=== PATIENT | male | born 1970 | race Caucasian/White ===

== ENCOUNTER 2025-01-31 10:41 | Inpatient (IN) | payer OTHER, SELFPAY ==
[2025-01-31] VITALS (30 sets, daily range): BP systolic 111–169; BP diastolic 60–97; PULSE 73–98; RESP 11–23; TEMP 36.6–36.8; O2SAT 95–100; BMI 24.0
--- NOTE | ~2025-01-31 | XR_ITS ---
XR chest 1V portable Ordering provider: Zeeshan Craig MD History: 54 years Male with . cp . Comparison: July 27, 2013 FINDINGS: MEDIASTINUM: The cardiac silhouette is not enlarged. LUNGS: No infiltrates, effusions or pneumothorax. OTHER: No free air under the diaphragm. IMPRESSION: No acute cardiopulmonary pathology. Reviewed, dictated and finalized at location A.
--- OUTSIDE RECORDS SUMMARY | 2025-01-31 10:43 | XMS_ITS | Referral Summary ---
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 400 strip 3 4 Active simvastatin (ZOCOR) 20 mg tablet Take 1 tablet (20 mg total) by mouth nightly 90 tablet 3 4 025 Active insulin aspart niacinamide (FIASP) 100 unit/mL vial for injectionIndica tions:type 2 diabetes mellitus Infuse insulin via insulin pump. Total daily dose of insulin 60 units. E11.65 60 mL 3 4 Active insulin aspart (NovoLOG) 100 unit/mL vial for injection Infuse insulin via insulin pump. Total daily dose of insulin 60 units. E11.65 Replacement for fiasp 60 mL 4 4 025 Discontin ued(Thera py completed ) Active Problems Problem Noted Date Diagnosed Date Weakness of both lower extremities 05/28/2023 Assessment & Plan (04/28/2024 12:47 PM CDT): Unclear etiology; continues to have weakness, legs tire easily; no evidence of muscle breakdown or disease Will continue to monitor Assessment & Plan (05/28/2023 2:58 PM CDT): Not well controlled, patient reports feeling tired and thighs with climbing stairs; notable low muscle mass; the patient has been regaining weight since initial diagnosis of A[place] Patient can walk on flat ground, 3-4 miles per day; symptoms worsening with age Given diagnoses of A[place]; may also have to consider other autoimmune disorder such as Graves disease, Екатерина's, Assawoman's disease or myasthenic syndrome Will continue to monitor closely, follow-up on testing as needed Medtronic 780G Insulin pump in place 10/17/2022 Assessment & Plan (01/18/2025 12:01 PM RECREATION CENTER DIRECTOR): This is a chronic condition which is not at goal . Download reviewed. From 01/05/2025 to 01/18/2025 Type of insulin pump- Medtronics 780 G with Guardian 4 sensor Pump settings : Basal -0.9 IC -- 9.5 ISF - 36 Active insulin time - 2 hrs. TARGET GLUCOSE -100-110 Avg BG 137 + or - 47 Avg Total daily insulin 46 units Avg daily bolus - 24 units (53%) Avg daily basal - 21 units (47%) Interpretation: In target 81% of the time. 2% hypoglycemia. 17% hyperglycemia. In manual mode 9% of the time, in smartguard 87%. Encouraged continued smartguard. Assessment & Plan (09/16/2024 9:58 AM CDT): This is a chronic condition which is not at goal . Download reviewed. From 09/03/2024 to 09/16/2024 Type of insulin pump- Medtronics 780 G with Guardian 4 sensor Pump settings : Basal -0.9 IC -- 9.5 ISF - 36 Active insulin time - 2 hrs. TARGET GLUCOSE -100-110 Avg BG 153 + or - 50 Avg Total daily insulin 49 units Avg daily bolus - 32 units (67%) Avg daily basal - 16 units (33%) Interpretation: In target 72% of the time. 2% hypoglycemia. 26% hyperglycemia. In manual mode 22% of the time, in smartguard 73%. Encouraged continued smartguard. Assessment & Plan (02/03/2024 9:59 AM CDT): This is a chronic condition which is not at goal . Download reviewed. Type of insulin pump- Medtronics 780 G with Guardian 4 sensor Pump settings : Basal -0.9 IC -- 9.5 ISF - 36 Active insulin time - 2 hrs. TARGET GLUCOSE -100-110 Avg BG 113 + or - 62 Avg Total daily insulin 57 units Avg daily bolus - 34 units (59%) Avg daily basal - 23 units (41%) Interpretation: In target 75% of the time with 1% hypoglycemia. 24% hyperglycemia. In manual mode 18% of the time, in smartguard 77%. Encouraged continued smartguard. Reviewed how to adjust target range to avoid hypoglycemia with activity. Assessment & Plan (10/29/2023 12:12 PM RECREATION CENTER DIRECTOR): This is a chronic condition which is improving, but close to goal as per pump download. Download reviewed. Type of insulin pump- Medtronics 780 G with Guardian 4 sensor Pump settings : Basal -0.9 IC -- 9.5 ISF - 36 Active insulin time - 2 hrs. TARGET GLUCOSE -100-110 Avg BG 171 + or - 98 Avg Total daily insulin 51.5 units Avg daily bolus - 26 units (51%) Avg daily basal - 25 units (49%) Interpretation: In target 72% of the time with 0% hypoglycemia. 28% hyperglycemia. In manual mode 23% of the time, in smartguard 73%. Encouraged continued smartguard. Assessment & Plan (07/30/2023 9:44 AM CDT): This is a chronic condition which is improving, but not at goal as per pump download. Download reviewed. Type of insulin pump- Medtronics 780 G with Guardian 4 sensor Pump settings : Basal -0.9 IC -- 9.5 ISF - 36 Active insulin time changed to 2 hrs. TARGET GLUCOSE -100-110 Avg BG 233 + or - 901 Avg Total daily insulin 47 units Avg daily bolus - 25units (54%) Auto correction 10 units (39%) Avg daily basal - 22 units (46%) Interpretation: In target 55% of the time with 0% hypoglycemia. 45% hyperglycemia. In manual mode 11% of the time, in smartguard 89%. Encouraged continued smartguard. Assessment & Plan (04/30/2023 11:42 AM CDT): This is a chronic condition which is improving, but not at goal as per pump download. Download reviewed. Type of insulin pump- Medtronics 770 G with Guardian 3 sensor Pump settings : Basal -0.7 IC -- 15 ISF - 6 Active insulin time changed to 3 hrs. TARGET GLUCOSE -100-130 Avg BG 163 + or - 61 Avg Total daily insulin 33 units Avg daily bolus -16units (49%) Avg daily basal -17 units (51%) Interpretation: In target 49% of the time with 1% hypoglycemia. 49% hyperglycemia. In manual mode 100% of the time. Assessment & Plan (01/16/2023 2:06 PM RECREATION CENTER DIRECTOR): This is a chronic condition which is improving, but not at goal as per pump download. Download reviewed. Type of insulin pump- Medtronics 770 G with Guardian 3 sensor Pump settings : Basal -0.7 IC -- 15 ISF - 6 Active insulin time changed to 3 hrs. TARGET GLUCOSE -100-130 Avg BG 163 + or - 61 Avg Total daily insulin 32 units Avg daily bolus -13 units (40%) Avg daily basal -19 units (60%) Interpretation improving blood sugar control since starting Medtronic 770 insulin pump. In target 63% of the time without hypoglycemia. In auto mode 79% of the time. Assessment & Plan (10/17/2022 12:55 PM RECREATION CENTER DIRECTOR): This is a chronic condition which is improving, but not at goal as per pump download. Download reviewed. Type of insulin pump- Medtronics 770 G with Guardian 3 sensor Pump settings : Basal -0.7 IC -decreased to 15 ISF decreased to 6 Active insulin time changed to 3 hrs. TARGET GLUCOSE -100-130 Avg BG 193 + or - 65 Avg Total daily insulin 31 units Avg daily bolus -16 units (51%) Avg daily basal -15 units (49%) Interpretation improving blood sugar control since starting Medtronic 770 insulin pump. In target 50% of the time with 1 episode of hypoglycemia since starting pump. Reports he overestimated his carb intake. Switch to auto mode today Mixed diabetic hyperlipidemi a associated with type 1 diabetes mellitus ([facility]) 04/05/2021 Assessment & Plan (09/16/2024 9:56 AM CDT): This is a chronic condition which is not at goal . Goal is LDL less than 70 Continue simvastatin Encouraged to eat healthy, include fresh fruits and vegetables daily and avoid eating fried foods more than once per week. Assessment & Plan (04/28/2024 12:46 PM CDT): Stable, well controlled; lipids generally at goal Continue assist simvastatin 20 mg nightly Assessment & Plan (02/03/2024 9:57 AM CDT): This is a chronic condition which is not at goal of LDL less than 70 Continue simvastatin Encouraged to eat healthy, include fresh fruits and vegetables daily and avoid eating fried foods more than once per week. Encouraged to take medications as prescribed. Assessment & Plan (10/29/2023 12:10 PM RECREATION CENTER DIRECTOR): This is a chronic condition which is not at goal of LDL less than 70 Continue simvastatin Encouraged to eat healthy, include fresh fruits and vegetables daily and avoid eating fried foods more than once per week. Encouraged to take medications as prescribed. Assessment & Plan (07/30/2023 9:41 AM CDT): This is a chronic condition which is not at goal of LDL less than 70 Continue simvastatin Encouraged to eat healthy, include fresh fruits and vegetables daily and avoid eating fried foods more than once per week. Encouraged to take medications as prescribed. Assessment & Plan (05/28/2023 2:58 PM CDT): LDL above target, has been improving diet, but patient reports not liking some healthy foods Cutting down on bad foods without adding back g ood foods Continue simvastatin 40 mg nightly, encourage low-fat high-fiber diet If no improvement, will discuss increasing simvastatin Assessment & Plan (04/30/2023 11:39 AM CDT): This is a chronic condition which is not at goal of LDL less than 70 Continue simvastatin Encouraged to eat healthy, include fresh fruits and vegetables daily and avoid eating fried foods more than once per week. Encouraged to take medications as prescribed. Assessment & Plan (01/16/2023 2:04 PM RECREATION CENTER DIRECTOR): This is a chronic condition which is not at goal. Goal is less than 70. Personally reviewed lipid panel. LDL -114. Continue simvastatin Encouraged to eat healthy, include fresh fruits and vegetables daily and avoid eating fried foods more than once per week. Encouraged to take medications as prescribed. Assessment & Plan (10/24/2022 9:10 AM RECREATION CENTER DIRECTOR): Controlled, last LDL was 114; however patient reports he was not consistent with diet Patient reports he is now improving his diet, taking better care self Will continue to monitor and follow Continue simvastatin 20 mg daily Assessment & Plan (09/05/2022 11:46 AM CDT): This is a chronic condition which is improving, but not at goal. Goal is less than 70. Personally reviewed lipid panel. LDL - 81, improving. currently on simvastatin 10 mg daily, Encouraged to eat healthy, include fresh fruits and vegetables daily and avoid eating fried foods more than once per week. Encouraged to take medications as prescribed. Will reassess at next visit. Assessment & Plan (02/21/2022 5:42 PM CDT): Stable, well controlled; continue simvastatin 10 mg daily Assessment & Plan (08/10/2021 11:16 AM CDT): This is a chronic condition which is improving, but not at goal. Goal is less than 70. Personally reviewed lipid panel. LDL - 81, improving. currently on simvastatin 10 mg daily, Encouraged to eat healthy, include fresh fruits and vegetables daily and avoid eating fried foods more than once per week. Encouraged to take medications as prescribed. Will reassess at next visit. Assessment & Plan (04/05/2021 11:36 AM CDT): This is a chronic condition which is improving, but not at goal. Goal is less than 70. Personally reviewed lipid panel for 10/07. Encouraged to eat healthy, include fresh fruits and vegetables daily and avoid eating fried foods more than once per week. Please take medications as prescribed. Continue on simvastatin 10mg daily. ALEX[place]RIA (latent autoimmune diab etes in adults), managed as type 1 03/01/2021 Overview (04/05/2021): Diagnosed in September/2020, Positive NHAN abs of 23, C-peptide 2.1 Assessment & Plan (09/16/2024 9:56 AM CDT): This is a chronic condition which is elevated, not at goal. This is related to Medtronic sensor issues . Goal is less than 7%. Personally reviewed most recent A1c - Lab Results Component Value Date HGBA1C 8.0 09/16/2024 Personally reviewed POC blood sugar- at goal of 80-180 Lab Results Component Value Date POCGLU 148 09/16/2024 Medication- continue Medtronic 780 G/ Guardian 4 sensor with Fiasp insulin. Basal 0.9, carb ratio -9.5, sensitivity -36, target 100-110, active insulin time -2 hours Monitor blood sugar continuously with guardian cgm. Encouraged annual eye exam. Monofilament foot exam completed. Protective senses intact eGFR- greater than 90 Kidney function-normal Urine microalbumin/creatinine ratio - at goal. Goal is <30 not treated with MURALI/ARB Assessment & Plan (04/28/2024 12:46 PM CDT): Stable, improving; A1c is downtrending; patient using insulin pump with continuous glucose monitor Occasionally has to skip dosing with increased physical activities such as bowling or mowing the lawn Continue to monitor Assessment & Plan (02/03/2024 9:57 AM CDT): This is a chronic condition which is inadequately controlled , not at goal of less than 7%. Personally reviewed most recent A1c - Lab Results Component Value Date HGBA1C 7.5 02/03/2024 Personally reviewed POC blood sugar- at goal 80-180 Lab Results Component Value Date POCGLU 133 02/03/2024 Medication- continue Medtronic 780 G/ Guardian 4 sensor with Fiasp insulin. Basal 0.9, carb ratio -9.5, sensitivity -36, target 100-110, active insulin time -2 hours Monitor blood sugar continuously with sensor. Encouraged annual eye exam. Monofilament foot exam completed. protective senses intact Personally reviewed CMP eGFR-107 Kidney function- normal Urine microalbumin/creatinine ratio - at goal <30 not treated with MURALI/ARB B/P today- at goal of <140/90. Personally reviewed lipid panel. Not at Goal of less than 70. Continue simvastatin Assessment & Plan (10/29/2023 12:10 PM RECREATION CENTER DIRECTOR): This is a chronic condition which is improving and close to goal of less than 7%. Personally reviewed most recent A1c - Lab Results Component Value Date HGBA1C 7.3 10/29/2023 Personally reviewed POC blood sugar- at goal 80-180 Lab Results Component Value Date POCGLU 180 10/29/2023 Medication-continue Medtronic 780 G/ Guardian 4 sensor with Fiasp insulin. Basal 0.9, carb ratio -decreased 9.5, sensitivity - decreased 36, target 100-110, active insulin time -2 hours Monitor blood sugar continuously with guardian 4 sensor. Encouraged annual eye exam. Monofilament foot exam completed. protective senses intact Personally reviewed CMP eGFR- 107 Kidney function- normal Urine microalbumin/creatinine ratio - at goal <30 not treated with MURALI/ARB B/P today- at goal of <140/90. Personally reviewed lipid panel. Not at Goal of less than 70. Continue simvastatin Assessment & Plan (07/30/2023 9:41 AM CDT): This is a chronic condition which is inadequately controlled , not at goal of less than 7%. Personally reviewed most recent A1c - Lab Results Component Value Date HGBA1C 8.1 07/30/2023 Personally reviewed POC blood sugar- not at goal 80-180 Lab Results Component Value Date POCGLU 184 07/30/2023 Medication- Continue Medtronic 780 G/ Guardian 4 sensor with Fiasp insulin. Basal 0.9, carb ratio -decreased 9.5, sensitivity - decreased 36, target 100-110, active insulin time -2 hours Monitor blood sugar continuously with guardian 4 sensor. Encouraged annual eye exam. Monofilament foot exam completed. protective senses intact Personally reviewed CMP eGFR- 107 Kidney function- normal Urine microalbumin/creatinine ratio - goal <30 not treated with MURALI/ARB B/P today- not at goal of <140/90. Discussed monitoring blood sugar 3 times weekly. Discussed proper way of measuring blood pressure. Personally reviewed lipid panel. Not at Goal of less than 70. 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 Personally reviewed most recent A1c - Lab Results Component Value Date HGBA1C 8.1 04/30/2023 Personally reviewed POC blood sugar- not at goal 80-180 Lab Results Component Value Date POCGLU 241 04/30/2023 Medication- Continue Metronic 770 g. With fiasp insulin. Awaiting upgrade to 780G. Monitor blood sugar continuously with Guardian 3/4 Encouraged annual eye exam. last dilated eye exam was 10/09 Monofilament foot exam completed. protective senses intact Personally reviewed CMP eGFR- 111 Kidney function- normal Urine microalbumin/creatinine ratio - at goal <30 not treated with MURALI/ARB B/P today-at goal of <140/90. Personally reviewed lipid panel. Not at Goal of less than 70. Continue simvastatin Assessment & Plan (01/16/2023 2:04 PM RECREATION CENTER DIRECTOR): This is a chronic condition which is greatly improved but not at goal of less than 7%. Personally reviewed A1c today- 7.7% Personally reviewed blood sugar-146 at goal 80-180 Medication- continue Medtronic 770G Encouraged annual eye exam. last dilated eye exam was 10/09. Monofilament foot exam completed, protective senses intact Urine microalbumin/creatinine ratio - <13, at goal <30. Not on murali/arb Personally reviewed labs: CMP, GFR-106 Kidney function- normal B/P today-at goal of less than 140/90. not on MURALI/ARB. Personally reviewed LDL -114, not at goal of less than 70. Continue simvastatin No history of macrovascular disease - [place], [place]. Assessment & Plan (10/24/2022 9:10 AM RECREATION CENTER DIRECTOR): Stable, improving; last A1c was 11.6, however patient now has insulin pump has been using for the past month with improved control blood sugars Patient pressing on low-carbohydrate diet and low refined carbohydrate diet Will continue to monitor Assessment & Plan (10/17/2022 12:51 PM RECREATION CENTER DIRECTOR): This is a chronic condition which is worsening and not at goal of less than 7%. Personally reviewed A1c today- 11.6% Personally reviewed blood sugar-155 at goal 80-180 Medication- continue Medtronic 770G Encouraged annual eye exam. last dilated eye exam was 03/02/21. Reports has an appt 10/09. Monofilament foot exam completed, protective senses intact Urine microalbumin/creatinine ratio - <13, at goal <30. Not on murali/arb Personally reviewed labs: CMP, GFR-106 Kidney function- normal B/P today-at goal of less than 140/90. not on MURALI/ARB. Personally reviewed LDL not at goal of less than 70, improving. Continue simvastatin 10 mg daily, No history of macrovascular disease - [place]. Assessment & Plan (09/05/2022 12:33 PM CDT): This is a chronic condition which is worsening and not at goal. Personally reviewed A1c today- 11.6% close to goal of less than 7% Personally reviewed blood sugar-206, not at goal 80-180 Medication- continue Tresiba 12units daily Encouraged to take tresiba as ordered. Novolog 3 units prior to meals and sliding scale before meals only :- uses Medtronic inpen. 2 units > 200- 3 units > 250. 4 units > 300 and 5 units > 350. Monitor blood sugar continuously with Dexcom 6 Discussed adding insulin pump. Wants to proceed with Medtronic 770G Encouraged annual eye exam. last dilated eye exam was 03/02/21. Reports has an appt 10/09. Monofilament foot exam completed, protective senses intact Urine microalbumin/creatinine ratio - <13, at goal <30. Not on murali/arb Personally reviewed labs: BUN- 17, creatinine- 0.80 GFR-106 Kidney function- normal B/P today-at goal. not on MURALI/ARB. goal blood pressure is <140/90. Personally reviewed LDL - 81, improving. Continue on simvastatin 10 mg daily, not at goal of less than 70 No history of macrovascular disease - [place], [place]. Assessment & Plan (02/21/2022 5:41 PM CDT): Patient reports home blood sugars have been mildly elevated; has difficulty due to work schedule, eating more and fly, reacting with insulin as opposed to being proactive Patient reports he has not been planning a needs, but does try to target 3-4 cars meal Continue Degludec 12 units at bedtime, Humalog 3-4 units with meals Exercises by walking 3-4 miles per day Assessment & Plan (08/10/2021 11:19 AM CDT): This is a chronic condition which is improving, but not at goal. Personally reviewed A1c today- 7.3% close to goal of less than 7% Personally reviewed blood sugar-181, at goal 80-180 Medication- stop Levemir - change to Tresiba 11 units daily and increased to 12 units after 3-4 days to titrate for fasting blood sugar of 150. Novolog 3 units prior to meals and sliding scale before meals only : 2 units > 200- 3 units > 250. 4 units > 300 and 5 units > 350. discontinue Metformin 500 mg bid Monitor blood sugar continuously with Dexcom 6 Discussed adding insulin pump at a later date. Encouraged annual eye exam. last dilated eye exam was 03/02/21 Monofilament foot exam completed, protective senses intact Urine microalbumin/creatinine ratio - 30, currently at goal <30. Not on murali/arb Personally reviewed labs: BUN- 17, creatinine- 0.80 GFR-106 Kidney function- normal B/P today- 90/64 , currently not on MURALI/ARB. At goal blood pressure is <140/90 and as close to 120/80 as possible. Personally reviewed LDL - 81, improving. currently on simvastatin 10 mg daily, not at goal of less than 70 No history of macrovascular disease - [place], [place]. DexCom 6 continuous glucose monitor applied from 07/27/2021 to 08/09/2021 This device was placed for monitor and treatment of blood sugar. Average blood sugar- 188 Variability- 49 % ( goal < 36%) Data Analysis Very High >250 mg/dl- 11% High 181-250 mg/dl 42% Target 70-180 mg/dl 47% Low 54-69 mg/dl 0% Very Low <50 mg/dl 0% Interpretation of data- Lack of basal insulin with weight gain. Changed to Tresiba and basal dose increased. Assessment & Plan (05/31/2021 4:09 PM CDT): Stable, well controlled Patient is blood sugar control is continuing to improve Will continue to monitor Patient followed with Endocrinology for management of blood sugar Today will draw TSH Assessment & Plan (04/05/2021 11:37 AM CDT): This is a chronic condition which is stable, controlled, uncontrolled with hyperglycemia, improving, but not at goal. Personally reviewed A1c today- 8.6% down from 9.0 (12/19/20) Not at goal less than 7% Personally reviewed blood sugar-134, at goal 80-180 Medication- Continue LEVEMIR 10 Units under the skin daily after dinner Use Novolog insulin sliding scale before meals only : 2 units > 200- 3 units > 250. 4 units > 300 and 5 units > 350. Continue Metformin 500 mg bid Monitor blood sugar 4x times a day. Discussed adding insulin pump and sensor. He would like the [employer] 770 G insulin pump system. Referral sent to [facility]Arina Broussard Encouraged annual eye exam. last dilated eye exam was 03/02/21 Monofilament foot exam completed, protective senses intact Urine microalbumin/creatinine ratio - 30, currently at goal <30. Not on murali/arb Personally reviewed labs: (10/07) BUN- 9, creatinine- 0.75 GFR-108 Kidney function- normal B/P today- 118/60 , currently not on MURALI/ARB. At goal blood pressure is <140/90 and as close to 120/80 as possible. Personally reviewed LDL - 109, currently on simvastatin 10 mg daily, not at goal of less than 70 No history of macrovascular disease - [place], [place]. Therapeutic CGM is needed for this person with Type 1 Diabetes for the following reasons: The person has been using a home blood glucose monitor (BGM) and is testing four or more times a day. The person is insulin-treated with three or greater daily injections The person's insulin treatment regimen requires frequent adjustment based on the therapeutic CGM testing results This person has viewed and understands the tutorial video on the continuous glucose monitor Patient has been on 3 or more insulin injections over the last 6 months and has been testing blood sugars 4 times a day for the last 90 days. Patient has been adjusting insulin doses based on blood sugar. Assessment & Plan (03/03/2021 5:03 PM CDT): Diagnosed in September/2020 Positive NHAN abs of 23 C-peptide 2.1 Control : not controlled A1c 9.0% on 12/19/20 Kidney: normal GFR in September/2020 Neuropathy : none Plan: Start Levemir insulin 10 units Qhs. Use Novolog insulin sliding scale before meals only : 2 units > 200- 3 units > 250. 4 units > 300 and 5 units > 350. Continue Metformin 500 mg bid Monitor sugars 4 x per day and send records in one week. Hypoglycemia symptoms and treatment reviewed with patient. Call if having low sugars. Ophthalmology exam on regular basis. Assessment & Plan (03/01/2021 10:05 AM CDT): -based weight loss, poor control of blood sugar with diet and metformin, and positive NHAN markers, concern for LAD -today will start insulin 70-30; discussed with patient how to take insulin, importance of taking with meals, and need for pre-bedtime snack to help reduce risk of hypoglycemia at night -discussed with patient concerns for hypoglycemia -patient has follow-up with endocrine scheduled; will continue to monitor response to medication and determine further steps are required Given patient is starting on insulin, would like benefit from continuous glucose monitoring. Moderate tobacco use disorder 09/28/2020 Overview (09/28/2020): One pack per day, since age 20 Assessment & Plan (04/28/2024 12:46 PM CDT): Stable, mild improvement; smoking 10-20 cigarettes most days; patient not yet ready to quit; encouraged continued evaluation of tobacco use Assessment & Plan (05/28/2023 2:58 PM CDT): Not well controlled, continues to smoke 1/2-1 pack per day; patient has quit before for long periods Patient aware of need to be ready to quit, at this time patient reports he is not ready to quit Will continue to monitor closely and discuss prescription therapies patient is ready for smoking cessation Assessment & Plan (10/24/2022 9:11 AM RECREATION CENTER DIRECTOR): Stable, improving; patient reports he is now down to about 1/2 pack per day, previously quit for about 3 months Encouraged patient to continue to look at smoking cessation; this time patient reports he is not ready to quit smoking Patient is interested in lung cancer screening Assessment & Plan (09/05/2022 12:30 PM CDT): This is a chronic condition which continues. States is only smoking 3-4 cigarettes/day. Encouraged to stop smoking. Assessment & Plan (05/31/2021 4:09 PM CDT): Stable, not well controlled Patient continues to smoke about 1 pack per day Patient reports that this time he is not interested including, has been able to quit the past, though in his stages of change he is not yet ready to make that change Assessment & Plan (12/19/2020 1:47 PM RECREATION CENTER DIRECTOR): Improving, patient has decreased tobacco use, patient is ready to quit Assessment & Plan (11/03/2020 1:42 PM RECREATION CENTER DIRECTOR): Not ready to quit Assessment & Plan (09/28/2020 12:56 PM RECREATION CENTER DIRECTOR): Patient reports he has quit a few times the past, by going cold turkey Most recently restarted during COVID-19 quarantine Patient is a as there medical therapy today, however did counseled patient on importance of smoking cessation for overall long-term health Patient understands is contemplating quitting Resolved Problems Problem Noted Date Diagnosed Date Resolved Date Type 2 diabetes mellitus wit hout complication, without long-term current use of insulin 09/28/2020 03/01/2021 Assessment & Plan (12/19/2020 1:47 PM RECREATION CENTER DIRECTOR): Improving, not well controlled, a1c is 9.0 today -will increase dose of Metformin to 1000 units daily -patienthas been working hard on dietary changes, decreased carbohydrate intake, targeting 50 mg per meal. Assessment & Plan (11/03/2020 2:44 PM RECREATION CENTER DIRECTOR): Improved control based upon patient's home glucose measurements Will continue to monitor, recheck A1c in 6 weeks to see how 3 months of therapy has helped with blood sugar control Encouraged patient continue with low-carbohydrate diet, and increase exercise to include moderate intensity exercise Today will start low-dose statin therapy given patient's cholesterol levels are all within normal limits Encouraged patient to make dietary and lifestyle changes to improve HDL cholesterol Patient reports recent eye exam, dilated eye exam with no concerns for retinopathy Assessment & Plan (09/28/2020 12:54 PM RECREATION CENTER DIRECTOR): Patient's symptoms consistent with newly diagnosed diabetes Weight loss and increased urinary frequency consistent with diabetes; low concern for cancer of prostate, colon or lung at this time; however the patient's symptoms of weight loss and increased urination do not resolve with improved blood sugar control then will plan for further workup A1c checked today in clinic elevated will check lipid panel and CBC and CMP on discharge Today will start on metformin 500 mg XR, will continue to increase dose as necessary in order to improve blood sugar control Follow-up 4-6 weeks and check blood sugar, if still elevated then will begin to add other medication and increased dose of metformin as tolerated BMI 22.0-22.9, adult 09/28/2020 023 Assessment & Plan (04/05/2021 11:34 AM CDT): Weight increased by 4lbs. Has slightly increased carb intake. Encouraged healthy eating. Assessment & Plan (09/28/2020 12:56 PM RECREATION CENTER DIRECTOR): Recent weight loss attributed to newly diagnosed diabetes, however patient overall has good healthy weight Immunizations Immunization Administration Dates Next Due Influenza, Unspecified 04/26/2023(Deferr ed: Patient Refused),07/19/2022(Deferred: Patient Refused),08/18/2021(Deferred: Patient Refused),12/19/2020(Deferred: Patient Refused),11/18/2020(Deferred: Patient Refused),11/03/2020(Deferred: Patient Refused),09/28/2020(Deferred: Patient Refused),11/18/2019(Deferred: Patient Refused),11/18/2019(Deferred: Patient Refused),11/18/2019(Deferred: Patient Refused),11/18/2019(Deferred: Patient Refused) Freever (J&J) SARS-CoV-2 Vaccination 01/24/2021 Social History Tobacco Use Types Packs/Day Years Used Date Smoking Tobacco: Every Day Cigarettes Smokeless Tobacco: Never Tobacco Cessation:Ready to Q uit: Not Asked; Counseling Given: Not Answered Comments:1 ppd Alcohol Use Standard Drinks/Week Comments Not Currently 0 (1 standard drink = 0.6 oz pur e alcohol) AUDIT-C Answer Date Recorded Q1: How often do you have a drink containing alc ohol? Monthly or less 04/26/2023 Average Number of Drinks Not on file 023 Frequency of Binge Drinking Not on file 07/2023 PHQ-2 Answer Date Recorded PHQ-2 Total Score (If total score is 3 or more points, staff should administer the PHQ-9) 0 04/28/2024 Sex and Gender Information Value Date Recorded Sex Assigned at Not on file Legal Sex Male 1:40 AM RECREATION CENTER DIRECTOR Gender Identity Not on file Sexual Orientation Not on file Last Filed Vital Signs Vital Sign Reading Time Taken Comments Blood Pressure 122/64 01/18/2025 11:39 AM RECREATION CENTER DIRECTOR Pulse 95 04/28/2024 8:10 AM CDT Temperature 36.8 C (98.2 F) 04/28/2024 8:10 AM CDT Respiratory Rate 18 04/28/2024 8:10 AM CDT Oxygen Saturation 97% 04/28/2024 8:10 AM CDT Inhaled Oxygen Concentration - - Weight 70.3 kg (155 lb) 01/18/2025 11:39 AM RECREATION CENTER DIRECTOR Height 170.2 cm (5' 7 ) 01/18/2025 11:39 AM RECREATION CENTER DIRECTOR Body Mass Index 24.28 01/18/2025 11:39 AM RECREATION CENTER DIRECTOR Plan of Treatment Not on file Procedures Procedure Name Priority Date/Time Associated Diagnosis Comments POCT HEMOGLOBIN A1C Routine 01/18/2025 1 1:43 AM RECREATION CENTER DIRECTOR [place] (latent autoimmune diabetes in adults), managed as type 1 (HCC) POCT GLUCOSE Routine 01/18/2025 11:40 AM RECREATION CENTER DIRECTOR [place] (latent autoimmune diabetes in adults), managed as type 1 (HCC) HEPATITIS C ANTIBODY Routine 04/30/2024 8:13 AM CDT Encounter for hepatitis C screening test for low risk patient EGFR Routine 04/30/2024 8:13 AM CDT [place] (latent autoimmune diabetes in adults), managed as type 1 (HCC) LIPID PANEL Routine 04/30/2024 8:13 AM CDT [place] (latent autoimmune diabetes in adults), managed as type 1 (HCC) ALBUMIN CREATININE RATIO, URINE Routine 04/30/2024 8:13 AM CDT [place] (latent autoimmune diabetes in adults), managed as type 1 (HCC) THYROID FUNCTION CASCADE Routine 04/30/2024 8:13 AM CDT [place] (latent autoimmune diabetes in adults), managed as type 1 (HCC) PSA SCREEN Routine 04/30/2024 8:13 AM CDT Screening PSA (prostate specific antigen) DIABETIC EYE EXAM Routine 10/14/2023 STOOL DNA COLOGUARD Routine 02/15/2022 7:00 AM CDT Colon cancer screening from Last 3 Months or Most Recently Relevant to Health Maintenance Results * POCT hemoglobin A1c (01/18/2025 11:43 AM RECREATION CENTER DIRECTOR) Hemoglobin A1C, POC 6.9 4.0 - 5.6 % Blood 01/18/2025 11:4 3 AM RECREATION CENTER DIRECTOR us Elena Boland NP POINT OF CARE TEST ORDERABLES F inal Result * POCT glucose (01/18/2025 11:40 AM RECREATION CENTER DIRECTOR) Glucose Blood, POC 120 mg/dL Blood 01/18/2025 11:4 0 AM RECREATION CENTER DIRECTOR us Elena Boland NP POINT OF CARE TEST ORDERABLES F inal Result * eGFR (04/30/2024 8:13 AM CDT) eGFR >90 >=60 mL/min/1. 73 m2 Comment: Interpretive Data Reference Interval Normal >/= 90 mL/min/1.73m2 Mildly decreased* 60 - 89 mL/min/1.73m2 Mildly to moderately decreased 45 - 59 mL/min/1.73m2 Moderately to severely decreased 30 - 44 mL/min/1.73m2 Severely decreased 15 - 29 mL/min/1.73m2 Kidney Failure < 15 mL/min/1.73m2 *Relative to young adult level Estimated glomerular filtration rate is determined by the 2020 CKD-EPI equation recommended by the National Kidney Foundation (A Unifying Approach to GFR Estimation: Recommendations of the NKF-ASK Task Force on Reassessing the Inclusion of Race in Diagnosing Kidney Disease, JASN 2020). The CKD-EPI equation should not be used for patients with unstable renal function and has not been validated in children and those over 70. Current interpretive data was last reviewed 2021. Testing performed by: [facility], [address] [place] [address]., [id number] Blood 04/30/2024 8:13 AM CDT 04/30/2024 12:40 PM CDT Jose Elias Babb MD LAB BLOOD ORDERABLES Pricilla l Result Performing Organization Address City/[facility]/ZIP Co de Phone Number ADELIA AMBRIZ (VENICE) [address] [place] [address] [place] [address] * Thyroid Function [place] (04/30/2024 8:13 AM CDT) TSH 1.23 0.30 - 4.20 mcIUnit/mL Comment:Testing performed by : [facility], [address] [place] [address]., [id number] Blood 04/30/2024 8:13 AM CDT 04/30/2024 12:29 PM CDT Jose Elias Babb MD LAB BLOOD ORDERABLES Pricilla l Result Performing Organization Address City/[facility] Co de Phone Number ADELIA AMBRIZ (VENICE) [address] [place] [address] [place] [address] * PSA screen (04/30/2024 8:13 AM CDT) PSA-Total 1.47 <=3.90 ng/mL Comment: Interpretive Data AGE SEX REFERENCE INTERVAL 0 minutes-150 years Female None 0 minutes-49 years Male None 50-59 years Male 0-3.90 60-69 years Male 0-5.40 70-79 years Male 0-6.20 80-150 years Male 0-6.20 The Max PSA Total assay procedure was used. Results from different manufacturers or methods may not be comparable. Serial testing should be performed using the same method. Current interpretive data last revised 22. Testing performed by: [facility], [address] [place] [address]., [id number] Blood 04/30/2024 8:13 AM CDT 04/30/2024 12:29 PM CDT Jose Elias Babb MD LAB BLOOD ORDERABLES Pricilla l Result Performing Organization Address [facility] de Phone Number ADELIA AMBRIZ (SAMRA) [address] [facility] [place] [address] * Hepatitis C antibody Blood (04/30/2024 8:13 AM CDT) Hep C Ab Nonreactive Nonreactive Comment: Interpretive Data Nonreactive: Antibodies to HCV not detected. Does NOT exclude the possibility of recent exposure to HCV. Equivocal: Equivocal for HCV antibodies. Supplemental molecular testing will be automatically performed to determine infection status in accordance with current CDC screening recommendations. Reactive: Positive for HCV antibodies. This may represent current or past HCV infection. Supplemental molecular testing will be automatically performed to determine current infection status in accordance with current CDC screening recommendations. Interpretive data was last revised on 2020. Testing performed by: [facility], [address] [place] [address]., [id number] Blood 04/30/2024 8:13 AM CDT 04/30/2024 12:29 PM CDT Jose Elias Babb MD LAB MICROBIOLOGY - GENERA L ORDERABLES Final Result Performing Organization Address [facility] de Phone Number ADELIA AMBRIZ (SAMRA) [address] [facility] [place] [address] * Albumin Creatinine Ratio, Urine (04/30/2024 8:13 AM CDT) Albumin Ur <12.0 mg/L Comment: Interpretive Data No reference range established. Current interpretive data was last revised 2019. Testing performed by: [address] [address] Creatinine Ur 213.6 mg/dL ADELIA AMBRIZ (SAMRA) Comment: Interpretive Data No reference range established. Current interpretive data was last revised 2019. Testing performed by: [facility], [address] [place] [address]., [id number] Albumin Creatinine Ratio, Ur <6 1 - 29 mg/g ADELIA AMBRIZ (SAMRA) Comment:Testing performed by : [facility], [address] [place] [address]., [id number] Urine 04/30/2024 8:13 AM CDT 04/30/2024 12:28 PM CDT us Jose Elias Babb MD LAB URINE ORDERABLES Pricilla rosales Result ADELIA AMBRIZ (SAMRA) 1 [facility] [place] [address] * (ABNORMAL) Lipid panel (04/30/2024 8:13 AM CDT) Cholesterol 161 30 - 199 mg/dL Comment: Interpretive Data Ages < or = 19 years Acceptable: <170 mg/dL Borderline high: 170-199 mg/dL High: >or= 200 mg/dL Ages > or = 20 years Desirable: <200 mg/dL Borderline high: 200-239 mg/dL High: >or= 240 mg/dL Literature References: 1. Expert Panel on Integrated Guidelines for Cardiovascular Health and Risk Reduction in Children and Adolescents. Pediatrics 2011;128:S213 2. NCEP Expert Panel. Circulation 2004;110:227 Current Interpretive Data was last revised on 2018. Testing performed by: [facility], [address] [place] [address]., [id number] Triglycerides 57 <=149 mg/dL ADELIA AMBRIZ (SAMRA) Comment: Interpretive Data Ages < or = 9 years Acceptable: <75 mg/dL Borderline high: 75-99 mg/dL High: >or= 100 mg/dL Ages 10 to 20 years Acceptable: <90 mg/dL Borderline high: 90-129 mg/dL High: >or= 130 mg/dL Ages > or = 20 years Desirable: <150 mg/dL Borderline high: 150-199 mg/dL High: 200-499 mg/dL Very high: >or= 499 mg/dL Literature References: 1. Expert Panel on Integrated Guidelines for Cardiovascular Health and Risk Reduction in Children and Adolescents. Pediatrics 2011;128:S213 2. NCEP Expert Panel. Circulation 2004;110:227 Current Interpretive Data was last revised on 2018. Testing performed by: [facility], [address] [place] [address]., [id number] HDL 39(L) >=40 mg/dL CERNER AM [facility] (SAMRA) Comment: Interpretive Data Ages < or = 19 years Acceptable: >45 mg/dL Borderline low: 40-45 mg/dL Low: <40 mg/dL Ages > or = 20 years Desirable: >or= 60 mg/dL Low: <40 mg/dL Literature References: 1. Expert Panel on Integrated Guidelines for Cardiovascular Health and Risk Reduction in Children and Adolescents. Pediatrics 2011;128:S213 2. NCEP Expert Panel. Circulation 2003;110:227 Current Interpretive Data was last revised on 2018. Testing performed by: [facility], [address] [place] [address]., [id number] LDL, calculated 111 <=129 mg/dL [facility] (SAMRA) Comment: Interpretive Data Ages < or = 19 years Acceptable: <110 mg/dL Borderline high: 110-129 mg/dL High: >or= 130 mg/dL Ages > or = 20 years Optimal: <100 mg/dL Near optimal: 100-129 mg/dL Borderline high: 130-159 mg/dL High: >160 mg/dL Literature References: 1. Expert Panel on Integrated Guidelines for Cardiovascular Health and Risk Reduction in Children and Adolescents. Pediatrics 2011;128:S213 2. NCEP Expert Panel. Circulation 2004;110:227 Current Interpretive Data was last revised on 2018. Testing performed by: [facility], [address] [place] [address], [place]., [address] Non-HDL Cholesterol 122 mg/dL [facility] (SAMRA) Comment: Interpretive Data Ages < or = 19 years Acceptable: <120 mg/dL Borderline high: 120-144 mg/dL High: >145 mg/dL Ages > or = 20 years When triglycerides are >200 mg/dL, Non-HDL cholesterol is a secondary target of therapy with treatment goals that are 30 mg/dL greater than the LDL cholesterol target. Literature References: 1. Expert Panel on Integrated Guidelines for Cardiovascular Health and Risk Reduction in Children and Adolescents. Pediatrics 2011;128:S213 2. NCEP Expert Panel. Circulation 2004;110:227 Current Interpretive Data was last revised on 2018. Testing performed by: [facility], [address] [place] [address]., [id number] Chol/HDL ratio 4 SIRI Roy PB (VENICE) Comment:Testing performed by : [facility], [address] [place] [address]., [id number] Blood 04/30/2024 8:13 AM CDT 04/30/2024 12:29 PM CDT Jose Elias Babb MD LAB BLOOD ORDERABLES Pricilla rosales Result ADELIA AMBRIZ (VENICE) 1 [facility] [place] [address] * Diabetic Eye Exam (10/14/2023) Historical Provider HEALTH MAINTENANCE Final Result * Stool DNA - Cologuard (02/15/2022 7:00 AM CDT) Stool DNA - Cologuard Negative Negative [facility] (CLIA #:[id number]) Comment: NEGATIVE TEST RESULT. A negative Cologuard result indicates a low likelihood that a colorectal cancer (CRC) or advanced adenoma (adenomatous polyps with more advanced pre-malignant features) is present. The chance that a person with a negative Cologuard test has a colorectal cancer is less than 1 in 1500 (negative predictive value >99.9%) or has an advanced adenoma is less than 5.3% (negative predictive value 94.7%). These data are based on a prospective cross-sectional study of 10,000 individuals at average risk for colorectal cancer who were screened with both Cologuard and colonoscopy. (Miri Jansen al, N Engl J Med 2014;370(14):0450-0241) The normal value (reference range) for this assay is negative. COLOGUARD RE-SCREENING RECOMMENDATION: Periodic colorectal cancer screening is an important part of preventive healthcare for asymptomatic individuals at average risk for colorectal cancer. Following a negative Cologuard result, the [place] [employer] Society and U.S. Multi-Society Task Force screening guidelines recommend a Cologuard re-screening interval of 3 years. References: [place] [employer] Guideline for Colorectal Cancer Screening: https://www.cancer.org/cancer/uuwpw-hhuwvh-vwnmtm/loirlexzr-sasdtguvw-vkgrmgx/ac s-rec ommendations.html.; Garrett DK, Lashaun THOMAS, Keisha GrayK, Colorectal Cancer Screening: Recommendations for Physicians and Patients from the U.S. Multi-Society Task Force on Colorectal Cancer Screening , Am J Gastroenterology 2017; 112:2537-9042. TEST DESCRIPTION: Composite algorithmic analysis of stool DNA-biomarkers with hemoglobin immunoassay. Quantitative values of individual biomarkers are not reportable and are not associated with individual biomarker result reference ranges. Cologuard is intended for colorectal cancer screening of adults of either sex, 45 years or older, who are at average-risk for colorectal cancer (CRC). Cologuard has been approved for use by the U.S. FDA. The performance of Cologuard was established in a cross sectional study of average-risk adults aged 50-84. Cologuard performance in patients ages 45 to 49 years was estimated by sub-group analysis of near-age groups. Colonoscopies performed for a positive result may find as the most clinically significant lesion: colorectal cancer [4.0%], advanced adenoma (including sessile serrated polyps greater than or equal to 1cm diameter) [20%] or non- advanced adenoma [31%]; or no colorectal neoplasia [45%]. These estimates are derived from a prospective cross-sectional screening study of 10,000 individuals at average risk for colorectal cancer who were screened with both Cologuard and colonoscopy. (Miri Jansen al, N Engl J Med 2014;370(14):1907-5205.) Cologuard may produce a false negative or false positive result (no colorectal cancer or precancerous polyp present at colonoscopy follow up). A negative Cologuard test result does not guarantee the absence of CRC or advanced adenoma (pre-cancer). The current Cologuard screening interval is every 3 years. ([place] [employer] and U.S. Multi-Society Task Force). Cologuard performance data in a 10,000 patient pivotal study using colonoscopy as the reference method can be accessed at the following location: [email or web address]/results. Additional description of the Cologuard test process, warnings and precautions can be found at www.colQQTechnologyrd.com. Stool 02/15/2022 7:00 AM CDT 02/16/2022 9:06 AM CDT Jose Elias Babb MD LAB BODY FLUIDS AND STOOL S ORDERABLES Final Result [facility] (CLIA #:[id number]) [address] [place] [address] from Last 3 Months or Most Recently Relevant to Health Maintenance Insurance [facility] CHOICE PLUS [facility] [place] [address] [place] [address] [facility] CHOICE PLUS [place] [phone] Care Teams Bean Weigher Relationship Specialty Start Date End Date [place] [address] PCP - General Family Medicine 09/28/20
--- OUTSIDE RECORDS SUMMARY | 2025-01-31 10:43 | XMS_ITS | Clinical Summary ---
Author Organization [address] lt Address [address] [place] [address] Care Team Providers Care Master Lay Out Specialist Name Role Phone Jose Elias Babb MD Primary Care Provider [phone] Allergies No known active allergies Medications blood-glucose [...] autoimmune disorder such as Graves disease, Екатерина's, Scooter's disease or myasthenic syndrome Will continue to monitor closely, follow-up on testing as needed Medtronic 780G Insulin pump in place 10/17/2022 Assessment & Plan (01/18/2025 12:01 PM ELECTRICIAN FRONT): This is a chronic condition which is [...] activity. Assessment & Plan (10/29/2023 12:12 PM ELECTRICIAN FRONT): This is a chronic condition which is [...] time. Assessment & Plan (01/16/2023 2:06 PM ELECTRICIAN FRONT): This is a chronic condition which is [...] time. Assessment & Plan (10/17/2022 12:55 PM ELECTRICIAN FRONT): This is a chronic condition which is [...] a associated with type 1 diabetes mellitus ([facility]) 04/05/2021 Assessment & Plan (09/16/2024 9:56 AM [...] prescribed. Assessment & Plan (10/29/2023 12:10 PM ELECTRICIAN FRONT): This is a chronic condition which is [...] prescribed. Assessment & Plan (01/16/2023 2:04 PM ELECTRICIAN FRONT): This is a chronic condition which is not at goal. Goal is less than 70. Personally reviewed lipid panel. LDL -114. Continue simvastatin Encouraged to eat healthy, include fresh fruits and vegetables daily and avoid eating fried foods more than once per week. Encouraged to take medications as prescribed. Assessment & Plan (10/24/2022 9:10 AM ELECTRICIAN FRONT): Controlled, last LDL was 114; however patient [...] simvastatin Assessment & Plan (10/29/2023 12:10 PM ELECTRICIAN FRONT): This is a chronic condition which is [...] Improving control with improved management of sensory dish up person Will continue to support dietary changes and [...] simvastatin Assessment & Plan (01/16/2023 2:04 PM ELECTRICIAN FRONT): This is a chronic condition which is [...] No history of macrovascular disease - CVA, ND. Assessment & Plan (10/24/2022 9:10 AM ELECTRICIAN FRONT): Stable, improving; last A1c was 11.6, however patient now has insulin pump has been using for the past month with improved control blood sugars Patient pressing on low-carbohydrate diet and low refined carbohydrate diet Will continue to monitor Assessment & Plan (10/17/2022 12:51 PM ELECTRICIAN FRONT): This is a chronic condition which is [...] No history of macrovascular disease - CVA, ND. Assessment & Plan (09/05/2022 12:33 PM CDT): [...] sliding scale before meals only :- uses Furious inpen. 2 units > 200- 3 units [...] No history of macrovascular disease - CVA, ND. Assessment & Plan (02/21/2022 5:41 PM CDT): [...] No history of macrovascular disease - CVA, ND. DexCom 6 continuous glucose monitor applied from [...] pump and sensor. He would like the Furious 770 G insulin pump system. Referral sent to [facility]/Arina Broussard Encouraged annual eye exam. last dilated [...] No history of macrovascular disease - CVA, ND. Therapeutic CGM is needed for this person [...] cessation Assessment & Plan (10/24/2022 9:11 AM ELECTRICIAN FRONT): Stable, improving; patient reports he is now [...] change Assessment & Plan (12/19/2020 1:47 PM ELECTRICIAN FRONT): Improving, patient has decreased tobacco use, patient is ready to quit Assessment & Plan (11/03/2020 1:42 PM ELECTRICIAN FRONT): Not ready to quit Assessment & Plan (09/28/2020 12:56 PM ELECTRICIAN FRONT): Patient reports he has quit a few times the past, by going cold turkey Most recently restarted during COV- quarantine Patient is a as there medical therapy today, however did counseled patient on importance of smoking cessation for overall long-term health Patient understands is contemplating quitting Resolved Problems Problem Noted Date Diagnosed Date Resolved Date Type 2 diabetes mellitus wit hout complication, without long-term current use of insulin 09/28/2020 03/01/2021 Assessment & Plan (12/19/2020 1:47 PM ELECTRICIAN FRONT): Improving, not well controlled, a1c is 9.0 today -will increase dose of Metformin to 1000 units daily -patienthas been working hard on dietary changes, decreased carbohydrate intake, targeting 50 mg per meal. Assessment & Plan (11/03/2020 2:44 PM ELECTRICIAN FRONT): Improved control based upon patient's home glucose [...] retinopathy Assessment & Plan (09/28/2020 12:54 PM ELECTRICIAN FRONT): Patient's symptoms consistent with newly diagnosed diabetes [...] eating. 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 (CMS/HCC) (HCC); Medtronic 780G Insulin pump in place from Last 3 Months Immunizations Immunization Administration Dates Next Due Influenza, Unspecified 04/26/2023(Deferr ed: Patient Refused),07/19/2022(Deferred: Patient Refused),08/18/2021(Deferred: Patient Refused),12/19/2020(Deferred: Patient Refused),11/18/2020(Deferred: Patient Refused),11/03/2020(Deferred: Patient Refused),09/28/2020(Deferred: Patient Refused),11/18/2019(Deferred: Patient Refused),11/18/2019(Deferred: Patient Refused),11/18/2019(Deferred: Patient Refused),11/18/2019(Deferred: Patient Refused) 36Kr (J&J) SARS-CoV-2 Vaccination 01/24/2021 Surgical History Surgery Date Site/Laterality Comments ANTERIOR CRUCIATE LIGAMENT REPAIR 11/18/2006 - 7 Medical History Medical History Date Comments Weight loss Type 1 diabetes (HCC) Family History Medical History Relation Name Comments Atrial fibrillation Father Cancer Mother Hypertension Mother Thyroid disease Mother Relation Name Status Comments Father Alive Mother Social History Tobacco Use Types Packs/Day Years [...] on file Legal Sex Male 1:40 AM ELECTRICIAN FRONT Gender Identity Not on file Sexual Orientation Not on file Obstetrics History Last Filed Vital Signs Vital Sign Reading Time Taken Comments Blood Pressure 122/64 01/18/2025 11:39 AM ELECTRICIAN FRONT Pulse 95 04/28/2024 8:10 AM CDT Temperature 36.8 C (98.2 F) 04/28/2024 8:10 AM CDT Respiratory Rate 18 04/28/2024 8:10 AM CDT Oxygen Saturation 97% 04/28/2024 8:10 AM CDT Inhaled Oxygen Concentration - - Weight 70.3 kg (155 lb) 01/18/2025 11:39 AM ELECTRICIAN FRONT Height 170.2 cm (5' 7 ) 01/18/2025 11:39 AM ELECTRICIAN FRONT Body Mass Index 24.28 01/18/2025 11:39 AM ELECTRICIAN FRONT Plan of Treatment Health Maintenance Due Date Last Done Comments DTaP/Tdap/Td Vaccine (1 - Tdap) 1983 Pneumococcal vaccine <65 (1 of 2 - PCV) 1991 Zoster Vaccine (1 of 2) 2022 Covid-19 Vaccine (2 - 2023-2 5 season) 2024 01/24/2021 Influenza Vaccine (#1) 2024 Colon Cancer Screening-DNA Stool 02/15/2025 02/16/20 22 Depression Screening 04/28/2025 04/28/2024, 04/26/2023, 10/24/2022, Additional history exists Regular Well Visit/Exam 18-64 04/28/2025 04/28/2024 Albumin Creatinine Ratio, Urine 04/30/2025 04/30/2024, 04/30/2023, 09/05/2022, Additional history exists Lipid Panel 04/30/2025 04/30/2024, 04/18, 09/05/2022, Additional history exists TSH Level 04/30/2025 04/30/2024, 04/18, 09/05/2022, Additional history exists eGFR 04/30/2025 04/30/2024, 04/18, 09/05/2022, Additional history exists Hemoglobin A1C 07/21/2025 01/18/2025, 08/20, 02/03/2024, Additional history exists Foot Exam 09/16/2025 09/16/2024, 01/16, 10/29/2023, Additional history exists Dilated Eye Exam 10/14/2025 10/14/2023, , 03/02/2021 Prostate Cancer Screening-PSA 04/30/2026 04/30/2024, 04/30/2023 Hepatitis B Screening Completed 04/30/2024 Hepatitis C Screening Completed 04/30/2024 Procedures Procedure Name Priority Date/Time Associated Diagnosis Comments POCT HEMOGLOBIN A1C Routine 01/18/2025 1 1:43 AM ELECTRICIAN FRONT [place] (latent autoimmune diabetes in adults), managed as type 1 (HCC) POCT GLUCOSE Routine 01/18/2025 11:40 AM ELECTRICIAN FRONT [place] (latent autoimmune diabetes in adults), managed [...] * POCT hemoglobin A1c (01/18/2025 11:43 AM ELECTRICIAN FRONT) Hemoglobin A1C, POC 6.9 4.0 - 5.6 % Blood 01/18/2025 11:4 3 AM ELECTRICIAN FRONT us Elena Boland NP POINT OF CARE TEST ORDERABLES F inal Result * POCT glucose (01/18/2025 11:40 AM ELECTRICIAN FRONT) Glucose Blood, POC 120 mg/dL Blood 01/18/2025 11:4 0 AM ELECTRICIAN FRONT us Elena Boland NP POINT OF CARE [...] was last reviewed 2021. Testing performed by: [facility], [address] [place] [address]., [id number] Blood 04/30/2024 8:13 AM CDT 04/30/2024 12:40 PM CDT Jose Elias Babb MD LAB BLOOD ORDERABLES Pricilla l Result ADELIA AMBRIZ ([place]) [address] [place] [address] [place] [address] * Thyroid Function [place] (04/30/2024 8:13 AM CDT) TSH 1.23 0.30 - 4.20 mcIUnit/mL Comment:Testing performed by : [facility], [address] [place] [address]., [id number] Blood 04/30/2024 8:13 AM CDT 04/30/2024 12:29 PM CDT Jose Elias Babb MD LAB BLOOD ORDERABLES Pricilla l Result ADELIA AMBRIZ ([place]) [address] [place] [address] [place] [address] * PSA screen (04/30/2024 8:13 AM CDT) [...] data last revised 22. Testing performed by: [address] [address] Blood 04/30/2024 8:13 AM CDT 04/30/2024 12:29 PM CDT Jose Elias Babb MD LAB BLOOD ORDERABLES Pricilla l Result Performing Organization Address [facility] de Phone Number ADELIA AMBRIZ ([place]) [address] [facility] [place] [address] * Hepatitis C antibody Blood (04/30/2024 8:13 [...] last revised on 2020. Testing performed by: [facility], [address] [place] [address]., [id number] Blood 04/30/2024 8:13 AM CDT 04/30/2024 12:29 PM CDT Jose Elias Babb MD LAB MICROBIOLOGY - GENERA L ORDERABLES Final Result Performing Organization Address [facility] de Phone Number ADELIA AMBRIZ ([place]) 1 [facility] [place] [address] * Albumin Creatinine Ratio, Urine (04/30/2024 8:13 AM CDT) Albumin Ur <12.0 mg/L Comment: Interpretive Data No reference range established. Current interpretive data was last revised 2019. Testing performed by: [address] [address] Creatinine Ur 213.6 mg/dL ADELIA AMBRIZ ([place]) Comment: Interpretive Data No reference range established. Current interpretive data was last revised 2019. Testing performed by: [facility], [address] [place] [address]., [id number] Albumin Creatinine Ratio, Ur <6 1 - 29 mg/g ADELIA AMBRIZ ([place]) Comment:Testing performed by : [facility], [address] [place] [address]., [id number] Urine 04/30/2024 8:13 AM CDT 04/30/2024 12:28 PM CDT us Jose Elias Babb MD LAB URINE ORDERABLES Pricilla rosales Result ADELIA AMBRIZ ([place]) 1 [facility] [place] [address] * (ABNORMAL) Lipid panel (04/30/2024 8:13 AM [...] last revised on 2018. Testing performed by: [facility], [address] [place] [address]., [id number] Triglycerides 57 <=149 mg/dL ADELIA AMBRIZ ([place]) [...] last revised on 2018. Testing performed by: [facility], [address] [place] [address]., [id number] HDL 39(L) >=40 mg/dL CERNER AM H [...] last revised on 2018. Testing performed by: [facility], [address] [place] [address]., [address] LDL, calculated 111 <=129 mg/dL CERNER [facility] [...] last revised on 2018. Testing performed by: [facility], [address] [place] [address] [place]., [address] Non-HDL Cholesterol 122 mg/dL CERNER [facility] ([place]) [...] last revised on 2018. Testing performed by: [facility], [address] [place] [address]., [id number] Chol/HDL ratio 4 SIRI Roy PB ([place]) Comment:Testing performed by : [facility], [address] [place] [address]., [id number] Blood 04/30/2024 8:13 AM CDT 04/30/2024 12:29 PM CDT Jose Elias Babb MD LAB BLOOD ORDERABLES Pricilla l Result ADELIA PB ([place]) 1 [facility] Department of Laboratories [place], [place] [id number] * Diabetic Eye Exam (10/14/2023) Historical Provider HEALTH MAINTENANCE Final Result * Stool DNA - Cologuard (02/15/2022 7:00 AM CDT) Stool DNA - Cologuard Negative Negative Code Blue (CLIA #:[id number]) Comment: NEGATIVE TEST RESULT. A negative Cologuard [...] screened with both Cologuard and colonoscopy. (Miri Pacheco, N Engl J Med 2014;370(14):1904-4113) The normal value (reference range) for this assay is negative. COLOGUARD RE-SCREENING RECOMMENDATION: Periodic colorectal cancer screening is an important part of preventive healthcare for asymptomatic individuals at average risk for colorectal cancer. Following a negative Cologuard result, the [place] [employer] and U.S. Multi-Society Task Force screening guidelines recommend a Cologuard re-screening interval of 3 years. References: [place] [employer] Guideline for Colorectal Cancer Screening: https://www.cancer.org/cancer/pltjz-jborfy-ykfhdj/fgmnhvlpw-ywsvkbphe-aucrzoy/ac s-rec ommendations.html.; Garrett DK, Lashaun THOMAS, Keisha GrayK, Colorectal Cancer Screening: Recommendations for Physicians and Patients from the U.S. Multi-Society Task Force on Colorectal Cancer Screening , Am J Gastroenterology 2017; 112:4752-2307. TEST DESCRIPTION: Composite algorithmic analysis of stool [...] (Miri Jansen al, N Engl J Med 2014;370(14):0209-1030.) Cologuard may produce a false negative or false positive result (no colorectal cancer or precancerous polyp present at colonoscopy follow up). A negative Cologuard test result does not guarantee the absence of CRC or advanced adenoma (pre-cancer). The current Cologuard screening interval is every 3 years. ([place] [employer] and U.S. Multi-Society Task Force). Cologuard performance data in a 10,000 patient pivotal study using colonoscopy as the reference method can be accessed at the following location: www.[employer].imagoo/results. Additional description of the Cologuard test process, warnings and precautions can be found at www.colSpartzrd.com. Stool 02/15/2022 7:00 AM CDT 02/16/2022 9:06 AM CDT us Jose Elias Babb MD LAB BODY FLUIDS AND STOOL S ORDERABLES Final Result Performing Organization Address City/State/[facility] Co de Phone Number [facility] (CLIA #:[id number]) [address] [place] [address] from Last 3 Months or Most Recently Relevant to Health Maintenance Insurance [facility] [place] [address] [facility] [employer] Care Teams Master Lay Out Specialist Relationship Specialty Start Date End Date Jose Elias Babb MD [address] [place] [address] PCP - General Family Medicine 09/28/20
--- NOTE | 2025-01-31 10:45 | ECG_ITS ---
Test Date: 2025-01-31 10:50:06 Measurements Intervals Romulus Rate: 77 P: 66 NM: 154 QRS: 47 QRSD: 100 T: 67 QT: 356 QTc: 404 Interpretive Statements SINUS RHYTHM MARKED ST ELEVATION, CONSIDER INFERIOR INJURY ACUTE [place] No previous ECG available for comparison Electronically Signed On 01-31-2025 14:03:23 CDT by Edison Wood D.O
[2025-01-31] MEDS: ASPIRIN 81 MG CHEWABLE TABLET 324 MG PO (11:01)
[2025-01-31] MEDS: TICAGRELOR 90 MG TABLET 180 MG PO (11:01)
--- NOTE | 2025-01-31 11:01 | ED_ITS ---
HPI - General Adult General Chief complaint: Chest Pain Stated complaint: cp Time Seen by Provider: 01/31/25 10:57 History of Present Illness HPI narrative: 54-year-old male presented to the emergency department for evaluation for right- sided chest pain into the right arm. Patient reports symptoms started approximately 2 hours ago. Patient denies any prior cardiac history. Patient has never had a stress test. Patient denies any prior history of hypertension high cholesterol. Patient does have history of diabetes. Related Data Home Medications ?Medication ?Instructions ?Recorded ?Confirmed ?Last Taken ?Type blood sugar diagnostic (Accu-Chek 01/31/25 01/31/25 Unknown History Guide test strips) insulin aspart (niacinamide) 100 unit subcut .continuos Diabetes 01/31/25 01/31/25 01/31/25 History (U-100) 100 unit/mL subcutaneous solution (Fiasp U-100 Insulin) Allergies Allergy/AdvReac Type Severity Reaction Status Date / Time No Known Allergies Allergy Mild Unverified 07/27/13 10:15 Review of Systems 2 Review of Systems: All systems reviewed & are unremarkable except as noted in HPI and below PMFSH Family History Family History (Updated 01/31/25 @ 13:53 by Keren Bernal RN) Mother Breast cancer Thyroid condition Social History Social History (Updated 01/31/25 @ 11:54 by Edison Wood MD) Smoking packs per day: 1 Smoking cigarettes per day: 20.0 Years smoked: 30 Smoking pack-years: 30.00 Smoking status: Current every day smoker Tobacco type: cigarettes Second hand tobacco smoke exposure: No Alcohol intake: never Substance use: never Substance use type: does not use Do You Feel Safe in your Home?: Yes Lack of Transportation: No Lack of Food: Never True Current Housing: I Have Housing Concerned About Future Housing: No Difficulty Paying Gas/Electric Bills: No Difficulty Paying for Meds: No Currently Unemployed: No Education: Associate Degree Difficulty w/ Childcare or Family Care: No Spiritual care concerns: No Exam 2 Narrative: APPEARANCE: Uncomfortable HEAD: normocephalic, atraumatic. EYES: PERRLA/EOMI, conjunctivae clear. NOSE: Normal no drainage EARS:TMS clear with good light reflex. THROAT: Pharynx clear, no exudate. NECK: Supple. No adenopathy, no masses. RESPIRATORY: Airway patent, respirations nonlabored. Clear to auscultation bilaterally, no rales, rhonchi, wheezing. CARDIOVASCULAR: Regular rate and rhythm without murmurs rubs or gallops. ABDOMINAL: Soft, nontender, nondistended, normal bowel sounds MUSCULOSKELETAL: Moves all extremities. Strength/ROM intact, No edema, No calf tenderness. NEURO: Alert. Cranial nerves II through XII intact. Good gait. Good coordination SKIN: Warm, dry. Normal Color Course Vital Signs Vital signs: Vital Signs Pulse Rate 92 01/31/25 10:45 Temperature 98 F 01/31/25 16:00 Pulse Rate 82 01/31/25 18:00 Respiratory Rate 17 01/31/25 18:00 Blood Pressure 125/83 01/31/25 18:00 Pulse Oximetry 97 01/31/25 18:00 Oxygen Delivery Room Air 01/31/25 10:55 Medical Decision Making [facility] Narrative Medical decision making narrative: 54-year-old male presents emergency department for evaluation for right-sided chest pain. Patient's EKG show evidence of acute STEMI. STEMI was called and case was discussed with Dr Wood with cardiology. Patient was treated with 325 aspirin, 4000 of heparin, atorvastatin and Brilinta. 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 Differential Diagnosis Differential Diagnosis: STEMI, NSTEMI Vital Signs Vital Signs: Vital Signs Pulse Rate 92 01/31/25 10:45 Temperature 98 F 01/31/25 16:00 Pulse Rate 82 01/31/25 18:00 Respiratory Rate 17 01/31/25 18:00 Blood Pressure 125/83 01/31/25 18:00 Pulse Oximetry 97 01/31/25 18:00 Oxygen Delivery Room Air 01/31/25 10:55 Lab Data Lab results reviewed: Yes I reviewed the patient's lab results. 01/31/25 11:01 01/31/25 11:01 Labs: Lab Results 01/31/25 Range/Units 11:01 WBC 10.0 (4.5-10.0) K/mm3 RBC 5.18 (4.6-6.20) M/mm3 Hgb 16.1 (14.0-18.0) g/dL Hct 46.0 (42.0-52.0) % MCV 88.8 (80-100) fl MCH 31.1 (26-34) pg MCHC 35.0 (32-36) g/dl RDW 12.0 (11.5-14.5) % Plt Count 270 (150-375) k/mm3 MPV 9.1 (7.4-10.4) fl Immature Gran % (Auto) 0.4 (0-0.5) % Neut % (Auto) 63.2 (45.5-73.1) % Lymph % (Auto) 22.3 (18.3-44.2) % [place] % (Auto) 7.6 (2.6-8.5) % Eos % (Auto) 5.6 H (0-4.4) % Baso % (Auto) 0.9 (0.2-1.2) % Lymph # (Auto) 2.24 (0.9-3.2) K/mm3 [place] # (Auto) 0.8 H (0.1-0.6) K/mm3 Eos # (Auto) 0.6 H (0-0.3) K/mm3 Baso # (Auto) 0.1 (0.0-0.1) K/mm3 Abs Immat Gran (auto) 0.04 H (0.00-0.031) K/mm3 Absolute Neuts (auto) 6.3 (1.3-6.7) K/mm3 Absolute Nucleated RBC 0.000 (0.0-0.012) K/mm3 Nucleated RBC % 0.0 (0.0-0.2) % PT 13.8 (11.1-14.7) Seconds INR 1.0 APTT 25.8 (22.3-36.8) Seconds Sodium 140 (137-145) mmol/L Potassium 3.9 (3.4-5.0) mmol/L Chloride 102 (98-107) mmol/L Carbon Dioxide 27 (22-30) mmol/L Anion Gap 11 (4-12) mmol/L BUN 18 (9-20) mg/dL Creatinine 0.89 (0.7-1.3) mg/dL Estim Creat Clear Calc 80 ml/min Estimated GFR > 60 (59 - ) Glucose 124 H (65-110) mg/dL Hemoglobin A1c 6.5 H (<5.7) % Calcium 9.3 (8.4-10.2) mg/dL Total Bilirubin 0.8 (0.2-1.3) mg/dL AST 17 (17-59) U/L ALT 15 (6-50) U/L Alkaline Phosphatase 65 (38-126) U/L Troponin I 0.014 (0.000-0.034) ng/mL Total Protein 7.0 (6.3-8.2) g/dL Albumin 4.2 (3.5-5.1) g/dL Triglycerides 70 (<150) mg/dL Cholesterol 140 (0-200) mg/dL LDL Cholesterol Direct 88 mg/dL HDL Direct 37 mg/dL Lipase 43 (23-300) U/L ECG Data EKG #1: EKG Interpretation: normal rate, non-specific ST changes and ST elevation Critical Care Time Critical Care Time Critical Care Time: Yes Total Critical Care Time: 35 Discharge Plan Discharge Clinical Impression: ST elevation GA (STEMI) Patient Disposition: Still a Patient Condition: Critical
[2025-01-31] MEDS: HEPARIN SODIUM 5,000 UNITS/ML VIAL 4000 UNITS IV PUSH (11:02)
[2025-01-31] MEDS: ATORVASTATIN 40 MG TABLET 80 MG PO (11:03)
[2025-01-31 11:08] LABS: Basophils Absolute Auto 0.1 K/mm3 (0.0-0.1); Basophils Percent Auto 0.9 % (0.2-1.2); Eosinophils Absolute Auto 0.6 K/mm3 (0-0.3); Eosinophils Percent Auto 5.6 % (0-4.4); Hemoglobin 16.1 g/dL (14.0-18.0); Immature Granulocyte Absolute 0.04 K/mm3 (0.00-0.031); Immature Granulocyte Percent A 0.4 % (0-0.5); Lymphocytes Absolute Auto 2.24 K/mm3 (0.9-3.2); Lymphocytes Percent Auto 22.3 % (18.3-44.2); Mean Corpuscular Hemoglobin 31.1 pg (26-34); Mean Corpuscular Volume 88.8 fl (80-100); Mean Platelet Volume 9.1 fl (7.4-10.4); Monocytes Absolute Auto 0.8 K/mm3 (0.1-0.6); Monocytes Percent Auto 7.6 % (2.6-8.5); Neutrophils Absolute Auto 6.3 K/mm3 (1.3-6.7); Neutrophils Percent Auto 63.2 % (45.5-73.1); Platelet Count Result 270 k/mm3 (150-375); Red Blood Count 5.18 M/mm3 (4.6-6.20)
[2025-01-31 11:18] LABS: Alanine Aminotransferase 15 U/L (6-50); Albumin Level 4.2 g/dL (3.5-5.1); Alkaline Phosphatase 65 U/L (38-126); Anion Gap 11 mmol/L (4-12); Aspartate Amino Transferase 17 U/L (17-59); Bilirubin,Total 0.8 mg/dL (0.2-1.3); Blood Urea Nitrogen 18 mg/dL (9-20); Calcium 9.3 mg/dL (8.4-10.2); Carbon Dioxide 27 mmol/L (22-30); Chloride 102 mmol/L (98-107); Estimated CRCL calculation 80 ml/min; Estimated Glomerular Filt Rate > 60; Glucose 124 mg/dL (65-110); Lipase 43 U/L (23-300); Potassium 3.9 mmol/L (3.4-5.0); Prothrombin Time 13.8 Seconds (11.1-14.7); Sodium 140 mmol/L (137-145)
[2025-01-31 11:20] LABS: Partial Thromboplastin Time 25.8 Seconds (22.3-36.8)
[2025-01-31 11:29] LABS: Troponin I 0.014 ng/mL (0.000-0.034)
--- NOTE | 2025-01-31 11:48 | PM.IMHP ---
H&P: HPI History of Present Illness Date/Time: 01/31/25 11:48 Chief Complaint: Chest pain that started about 2.5 hours prior to arrival to the hospital Narrative: 54-year-old male smoker with late onset type 1 diabetes mellitus diagnosed in 2019 as per patient; tobacco abuse; no known prior cardiac history. Patient presented to [facility] Emergency Room on 01/31/2025 with complaints of right-sided arm discomfort which was followed by chest discomfort that started about 2.5 hours prior to arrival. He denied shortness of breath, palpitations, dizziness or syncope. Patient denies any known prior cardiac history including clinical VT. No known family history of early CAD. His EKG on my personal interpretation showed sinus rhythm, ST-elevation in the inferior leads with reciprocal ST depression. Cardiac catheterization lab was activated for primary PCI. Patient received aspirin, ticagrelor, atorvastatin, and bolus of unfractionated heparin in the ER. Review of Systems Review of Systems: General: Negative for fever, chills, fatigue Psychological: Negative for anxiety, depression Ophthalmic: negative for loss of vision ENT: Negative for epistaxis, headaches Allergy and immunology: Negative for hives, nasal congestion Hematologic and lymphatic: Negative for overt bleeding problems Endocrine: Negative for hot flashes, palpitations Respiratory: Negative for cough, hemoptysis Cardiovascular: Positive for chest pain and right-sided arm pain Gastrointestinal: Negative for abdominal pain, nausea, vomiting, hematochezia Musculoskeletal: Negative for myalgia, joint pains Neurological: Negative for weakness Dermatological: Negative for rash, skin discoloration PMFSH Social History Social History (Updated 01/31/25 @ 11:54 by Edison Wood MD) Smoking status: Current every day smoker Alcohol intake: current Substance use: never Meds Home Medications and Allergies Allergies Allergy/AdvReac Type Severity Reaction Status Date / Time No Known Allergies Allergy Mild Unverified 07/27/13 10:15 Vital Signs Vital Signs - 24 hr 01/31/25 10:45 01/31/25 10:50 01/31/25 10:55 Temperature 36.7 C Pulse Rate 92 98 Respiratory Rate 16 Blood Pressure 158/86 H Pulse Oximetry 100 Oxygen Delivery Room Air Room Air 01/31/25 11:05 Temperature Pulse Rate 92 Respiratory Rate 16 Blood Pressure 165/84 H Pulse Oximetry 100 Oxygen Delivery Exam Narrative: PHYSICAL EXAMINATION: GENERAL: Alert, oriented, no acute distress MENTAL STATUS: affect appropriate to mood EYES: Extraocular movements intact, no pallor EARS: External ears appear normal, hearing grossly normal NOSE: Normal and patent, no discharge MOUTH: Mucous membranes moist, tongue normal NECK: Supple, no JVD CHEST: Good respiratory effort, clear to auscultation HEART: Normal rate, regular rhythm, normal S1 and S2, S4 gallop ABDOMEN: Soft, nontender NEUROLOGICAL: Alert, oriented, normal speech, no gross motor deficits MUSCULOSKELETAL: No major deformity, no amputation EXTREMITIES: No pedal edema, no clubbing, no cyanosis SKIN: no rash on the exposed area, no cyanosis PSYCHIATRIC: Normal mood, appropriate affect H&P: Results Labs Labs: Short CBC 01/31/25 Range/Units 11:01 WBC 10.0 (4.5-10.0) K/mm3 Hgb 16.1 (14.0-18.0) g/dL Hct 46.0 (42.0-52.0) % Plt Count 270 (150-375) k/mm3 BMP 01/31/25 11:01 Sodium 140 Potassium 3.9 Chloride 102 Carbon Dioxide 27 BUN 18 Creatinine 0.89 Glucose 124 H Calcium 9.3 Cardiac Enzymes 01/31/25 Range/Units 11:01 Troponin I 0.014 (0.000-0.034) ng/mL Liver Function 01/31/25 Range/Units 11:01 Total Bilirubin 0.8 (0.2-1.3) mg/dL AST 17 (17-59) U/L ALT 15 (6-50) U/L Alkaline Phosphatase 65 (38-126) U/L Albumin 4.2 (3.5-5.1) g/dL Assessment and Plan Assessment and plan (1) ST elevation [place] (STEMI): Code(s): I21.3 - ST elevation (STEMI) myocardial infarction of unspecified site Status: Acute Assessment and Plan: 54-year-old male smoker with late onset type 1 diabetes mellitus diagnosed in 2020 as per patient; tobacco abuse; no known prior cardiac history. Patient presented to [facility] Emergency Room with chest discomfort and right arm discomfort that started about 2.5 hours prior to arrival. EKG showed ST elevation in inferior leads with reciprocal ST depression. He received aspirin, ticagrelor, atorvastatin and 4000 units of unfractionated heparin bolus in the ER. Emergent cardiac catheterization showed 100% thrombotic occlusion of mid LCX; about 60-70% focal stenosis mid LAD. Patient underwent primary PCI/IVUS, 4.0 x 22 mm Medtronic kennedy for anterior CELESTE placement with gnosticism of flow. Chest pain resolved post PCI. -admit to ICU -dual antiplatelet therapy with aspirin and ticagrelor for 1 year; high-dose atorvastatin. -functional assessment/PCI of mid LAD in near future. -labs include CMP, CBC, serial troponins for prognostication; HB A1c, lipid panel -echo with Doppler -type 1 diabetes management as per ICU physician (2) Tobacco abuse: Code(s): Z72.0 - Tobacco use Status: Acute Assessment and Plan: Smoking cessation consult was done. Patient is willing to quit tobacco. May use Chantix to facilitate smoking cessation at the time of discharge.
--- NOTE | 2025-01-31 12:57 | WPDCARDPROC ---
Cardiac Cath Procedure Note Date of procedure:: 01/31/25 Performing physician:: Edison Wood MD Procedure Procedure performed:: EMERGENT CARDIAC CATHETERIZATION AND PERCUTANEOUS CORONARY INTERVENTION REPORT DATE OF PROCEDURE: 01/31/2025 INDICATION FOR PROCEDURE: Acute coronary syndrome/inferior ST-elevation myocardial infarction BRIEF CLINICAL HISTORY: 54-year-old male smoker with late onset type 1 diabetes mellitus diagnosed in 2019 as per patient; tobacco abuse; no known prior cardiac history. Patient presented to [facility] Emergency Room on 01/31/2025 with complaints of right-sided arm discomfort which was followed by chest discomfort that started about 2.5 hours prior to arrival. He denied shortness of breath, palpitations, dizziness or syncope. Patient denied any known prior cardiac history including clinical MA. No known family history of early CAD. EKG showed sinus rhythm, ST-elevation in the inferior leads with reciprocal ST depression. Cardiac catheterization lab was activated for primary PCI. Patient received aspirin, ticagrelor, atorvastatin, and bolus of unfractionated heparin in the ER. PROCEDURES PERFORMED: 1. Emergent left heart catheterization- Selective left and right coronary angiogram; left ventriculogram and hemodynamic assessment 2. Primary percutaneous coronary intervention- a) intravascular ultrasound (IVUS) of left circumflex artery; b) direct stenting of mid left circumflex artery using a 4.0 x 22 mm Medtronic kennedy [place] zotarolimus eluting stent with jewish of flow 3. Moderate sedation-CPT code 39912 and beyond MODERATE SEDATION: Midazolam 1 mg; fentanyl 25 mcg. Start time 1200 , Stop time 1244 ; Total [id number] time 44 minutes; Elena Santaigo RN was trained observer for moderate sedation. ACCESS SITE: Right radial artery PROCEDURE NOTE: Patient was emergently brought to catheterization lab and prepped and draped in a usual sterile manner. After local anesthesia with lidocaine, right radial artery access was taken with micropuncture needle followed by insertion of a 6 Singaporean sheath. Selective left and right coronary angiogram was performed using 5 Singaporean JL3.5 guide catheter and JR4 diagnostic catheters respectively. Orthogonal views were taken. After completion of PCI, 5 Singaporean pigtail catheter was advanced in the LV cavity and was flushed with normal saline. LV pressure measurement was performed. After this, left ventriculogram was performed. The catheter was flushed again, and gradient across the aortic valve was measured on the pullback of the catheter. After completion of procedure, radial band was placed with good hemostasis. Patient tolerated procedure well without any immediate procedure related complications. FINDINGS: LEFT MAIN CORONARY: Medium caliber, relatively short vessel, no significant focal stenosis. LEFT ANTERIOR DESCENDING ARTERY: Medium caliber vessel, mildly tortuous, tapers distally and reaches the LV apex. There is about 60-70% focal stenosis in the mid segment distal to the diagonal branch. The major diagonal branch is a small to medium caliber vessel with poorly defined haziness at the ostium. LEFT CIRCUMFLEX ARTERY: The left circumflex artery is a large caliber vessel with 100% thrombotic occlusion in the mid segment before it gives rise to medium caliber OM1 and OM2 branches. There was ARJUN 0 flow prior to intervention which was restored post PCI. RIGHT CORONARY ARTERY: Medium caliber, tortuous vessel. There is mild plaque in the mid-distal segment. The vessel gives rise to medium caliber PDA and PLV branches. LEFT VENTRICULOGRAM: Borderline LV systolic function, ejection fraction about 45-50%; inferior wall is hypokinetic. LVEDP is elevated at 33 mmHg. HEMODYNAMIC ASSESSMENT: Opening pressure 130/66 mmHg, closing pressure 147/80 mmHg, LVEDP 33 mmHg; no significant gradient across aortic valve on the pullback of pigtail catheter. INTERVENTION REPORT: Patient had already received dual antiplatelet therapy with aspirin and ticagrelor in the emergency room. Bivalirudin was used for procedural anticoagulation. There was difficulty in engaging the left main coronary artery ostium with the available XB guide catheter. Next, left main coronary artery was selectively engaged using 6 Singaporean JL 3.5 guide catheter. The totally occluded mid LCX was crossed using 0.014 luge wire. Next, IVUS was performed which showed thrombotic occlusion in the mid LCX with distal reference diameter of 4.4 x 4.4 mm. After this, direct stenting was performed using a 4.0 x 22 mm Medtronic kennedy [place] zotarolimus eluting stent. Postdilation was performed using a 4.0 x 12 mm NC balloon. After this, IVUS was performed which showed reasonable stent apposition. There was no angiographically visible dissection or distal embolization. Left ventriculogram was performed as described above after completion of PCI. Radial band was applied for local hemostasis. Chest pain resolved post PCI. CONCLUSIONS: 1. CAD- a) 100% thrombotic occlusion of mid left circumflex artery (infarct-related vessel); b) about 60-70% focal stenosis mid LCX distal to diagonal branch c) mild diffuse plaque mid-distal RCA 2. Borderline LV systolic function, ejection fraction about 45-50% with inferior wall hypokinesis; LVEDP elevated at 33 mmHg. 3. Primary PCI-IVUS/stenting of totally occluded mid LCX using a 4.0 x 22 mm Medtronic kennedy [place] zotarolimus eluting stent. PLAN/RECOMMENDATIONS: -dual antiplatelet therapy with aspirin and ticagrelor for 1 year; high-dose atorvastatin. -functional assessment/PCI of mid LAD in near future. -labs include CMP, CBC, serial troponins for prognostication; HB A1c, lipid panel -echo with Doppler -type 1 diabetes management as per ICU physician. -complete smoking cessation. Smoking cessation counseling was done and patient is willing to quit tobacco. May use Chantix at discharge to facilitate smoking cessation. This document was completed by using [employer] Fluency Direct speech recognition software, therefore, biochemistry teacher variances may occur.
--- NOTE | 2025-01-31 13:00 | ECG_ITS ---
Test Date: 2025-01-31 13:22:37 Measurements Intervals [place] Rate: 77 P: 67 FL: 160 QRS: 34 QRSD: 97 T: 49 QT: 382 QTc: 435 Interpretive Statements SINUS RHYTHM Electronically Signed On 01-31-2025 14:03:55 CDT by Edison Wood D.O
[2025-01-31 13:11] LABS: Cholesterol 140 mg/dL (0-200); HDL Direct 37 mg/dL; Triglycerides 70 mg/dL (<150)
[2025-01-31 13:14] LABS: Hemoglobin A1C 6.5 % (<5.7)
--- NOTE | 2025-01-31 13:21 | WPDCNINT ---
Assessment and Plan Assessment and plan (1) ST elevation [place] (STEMI): Code(s): I21.3 - ST elevation (STEMI) myocardial infarction of unspecified site Status: Acute Assessment and Plan: 01/31: Patient presented with chest pain radiated the right arm, shortness of breath. EKG showed inferior ST elevation [place] with reciprocal ST depression. Status post PTCA/PCI with CELESTE x1 to mid left circumflex, EF 45-50%, patient also has a 60-70% focal stenosis in the mid segment distal to the diagonal branch in the LAD -cardiology following the patient -continue aspirin, statin, ticagrelor -will check lipid panel -echocardiogram has been ordered (2) Tobacco abuse: Code(s): Z72.0 - Tobacco use Status: Acute Assessment and Plan: Consult on cessation of tobacco use. Patient stated he is going to quit smoking as of today. (3) Diabetes: Code(s): E11.9 - Type 2 diabetes mellitus without complications Status: Acute Assessment and Plan: Patient has a insulin pump which will continue -Accu-Cheks and sliding scale insulin ACHS Plan DVT prophylaxis: Status post cardiac catheterization, SCDs Stress ulcer prophylaxis: Not indicated Nutrition: Diabetic and heart healthy diet Code Status: Full code Critical Care Time Spent: 45 minutes Discussed with patient and his spouse at bedside and updated them with patient's condition and plan of care. I answered their questions Due to a high probability of clinically significant, life threatening deterioration, the patient required my highest level of preparedness to intervene emergently and I personally spent this critical care time directly and personally managing the patient. This critical care time included obtaining a history; examining the patient; pulse oximetry; ordering and review of studies; arranging urgent treatment with development of a management plan; evaluation of patient's response to treatment; frequent reassessment; and discussions with other providers. It was exclusive of separately billable procedures and treating other patients and teaching time. Please see Assessment and Plan section and the rest of the note for further information on patient assessment and treatment This dictation may have been done utilizing a voice recognition system. Attempts have been made to correct errors. However, there may be uncorrected grammatical, spelling, and recognitions errors present. Wolf Hunter Consult Note Consult date: 01/31/25 Reason for consult: Inferior wall ST-elevation myocardial infarction status post PTCA/PCI with CELESTE x1 to mid left circumflex, EF 45-50%, patient also has a 60-70% focal stenosis in the mid segment distal to the diagonal branch in the LAD HPI: Fermin Silva is a 54 year old male diabetes all diagnosed in 2019, has an insulin pump, smoker, 1 pack per day for many years presented to the ER on 01/31/2025 with complains of chest pain radiating the right arm with started about 2.5 hours prior to arrival to the ED. he complained of some shortness of breath, denies any diaphoresis, nausea, vomiting. Patient denies any prior cardiac history, no known family history for early CAD. EKG showed ST-elevation in the inferior leads with reciprocal ST depression. Patient was taken to the cardiac labor contractor status post PTCA/PCI with CELESTE x1 to mid left circumflex, EF 45-50%, patient also has a 60-70% focal stenosis in the mid segment distal to the diagonal branch in the LAD. The right radial approach was performed, patient was transferred to the ICU for further management Patient seen and examined on arrival to the ICU, is awake, alert, oriented x3, pleasant gentleman in no acute distress. Denies any chest pain this time, no other complaints. Hemodynamically stable, TR band in place. States he smokes 1 pack per day for many years, which he has quit since this morning. He denies any alcohol or illicit drug use. Denies any a history of hypertension, thyroid disease, asthma, COPD, CAD. Review of Systems Review of Systems: All systems reviewed & are unremarkable except as noted in HPI and below [facility], LAT[facility] Social History Social History (Updated 01/31/25 @ 11:54 by Edison Wood MD) Smoking status: Current every day smoker Alcohol intake: current Substance use: never Meds Home Medications and Allergies Allergies Allergy/AdvReac Type Severity Reaction Status Date / Time No Known Allergies Allergy Mild Unverified 07/27/13 10:15 Vital Signs Vital Signs - 24 hr 01/31/25 10:45 01/31/25 10:50 01/31/25 10:55 Temperature 98.1 F Pulse Rate 92 98 Respiratory Rate 16 Blood Pressure 158/86 H Pulse Oximetry 100 Oxygen Delivery Room Air Room Air 01/31/25 11:05 01/31/25 11:06 01/31/25 11:11 Temperature Pulse Rate 92 90 87 Respiratory Rate 16 11 L 11 L Blood Pressure 165/84 H 165/84 H 169/92 H Pulse Oximetry 100 100 100 Oxygen Delivery 01/31/25 11:30 01/31/25 11:49 Temperature Pulse Rate 84 87 Respiratory Rate 16 16 Blood Pressure 165/97 H 169/91 H Pulse Oximetry 100 100 Oxygen Delivery Exam Narrative: General: Pleasant gentleman in no acute distress HEENT:? Pupils equal and reactive, sclera is clear, moist oral mucosa Neck:? Supple Respiratory:? Clear to auscultation bilaterally, no wheezing Cardiac:? S1-S2 normal, regular rate and rhythm Abdomen:? Soft, non tender, non distended, normoactive bowel sounds Extremities:? Palpable pedal pulses bilateral lower extremities, no edema. Right radial TR band in place, radial pulse is palpable, no evidence of ecchymosis or hematoma Neuro:? Patient is awake, alert, oriented, nonfocal, follows simple commands in all extremities and answers to questions appropriately Skin:? No skin lesions noted Psych:? Normal mentation and affect Results Labs 01/31/25 11:01 01/31/25 11:01 Labs: Short CBC 01/31/25 Range/Units 11:01 WBC 10.0 (4.5-10.0) K/mm3 Hgb 16.1 (14.0-18.0) g/dL Hct 46.0 (42.0-52.0) % Plt Count 270 (150-375) k/mm3 BMP 01/31/25 11:01 Sodium 140 Potassium 3.9 Chloride 102 Carbon Dioxide 27 BUN 18 Creatinine 0.89 Glucose 124 H Calcium 9.3 Cardiac Enzymes 01/31/25 Range/Units 11:01 Troponin I 0.014 (0.000-0.034) ng/mL Liver Function 01/31/25 Range/Units 11:01 Total Bilirubin 0.8 (0.2-1.3) mg/dL AST 17 (17-59) U/L ALT 15 (6-50) U/L Alkaline Phosphatase 65 (38-126) U/L Albumin 4.2 (3.5-5.1) g/dL Quality VTE Prophylaxis VTE prophylaxis: mechanical ordered Hospitalist MIPS Advance Care Plan I have confirmed that the patient's Advanced Care Plan is present, code status is documented, or surrogate decision maker is listed in patient medical record.: Yes Medication Reconciliation I have utilized all available resources to obtain, update and review the patients current medications (includes all prescriptions, OTC, herbals, cannabis, and nutritional supplements).: Yes
[2025-01-31 13:22] LABS: LDL Cholesterol Direct 88 mg/dL
--- NOTE | 2025-01-31 13:24 | ADMGEN ---
This patient, Fermin Silva, was admitted to Intensive Care Unit-8 at 1311 from the cardiac laboratory monitor. Patient/family oriented to hospital policies and general routines including ID bracelet, bed and alarms, visiting hours, pain management, procedures, bathroom and other care routines, personal items, smoking policy, room service/diet, and visiting hours. Information on how to activate the Rapid Response Team has been discussed. Patient/Family are encouraged to report perceived risks to care and to ask questions if they do not understand what they are told or what they should do.
--- NOTE | 2025-01-31 13:29 | ADMGEN ---
This patient, Fermin Silva, was admitted to Intensive Care Unit-8 at 1308. Patient/family oriented to hospital policies and general routines including ID bracelet, bed and alarms, visiting hours, pain management, procedures, bathroom and other care routines, personal items, smoking policy, room service/diet, and visiting hours. Information on how to activate the Rapid Response Team has been discussed. Patient/Family are encouraged to report perceived risks to care and to ask questions if they do not understand what they are told or what they should do.
[2025-01-31 13:37] LABS: Glucose Point of Care 293 mg/dl (65-105)
[2025-01-31] MEDS: SODIUM CHLORIDE 0.9% IV 1,000 ML 125 ML IV CONT (13:59)
[2025-01-31 15:44] LABS: MRSA (PCR) NOT DETECTED (NOT DETECTE)
[2025-01-31 16:51] LABS: Glucose Point of Care 188 mg/dl (65-105)
[2025-01-31 20:51] LABS: Alanine Aminotransferase 53 U/L (6-50); Albumin Level 3.6 g/dL (3.5-5.1); Alkaline Phosphatase 67 U/L (38-126); Anion Gap 8 mmol/L (4-12); Aspartate Amino Transferase 454 U/L (17-59); Bilirubin,Total 0.7 mg/dL (0.2-1.3); Blood Urea Nitrogen 10 mg/dL (9-20); Calcium 8.5 mg/dL (8.4-10.2); Carbon Dioxide 23 mmol/L (22-30); Chloride 106 mmol/L (98-107); Estimated CRCL calculation 99 ml/min; Estimated Glomerular Filt Rate > 60; Glucose 169 mg/dL (65-110); Magnesium 1.7 mg/dL (1.6-2.3); Phosphorus 3.6 mg/dL (2.5-4.5); Potassium 3.8 mmol/L (3.4-5.0); Sodium 137 mmol/L (137-145)
[2025-01-31] MEDS: AMIODARONE 150 MG/D5W 100 ML 150 MG/100 ML BAG 600 MG IV CONT (21:36)
[2025-01-31] MEDS: TICAGRELOR 90 MG TABLET PO (21:47)
[2025-01-31] MEDS: AMIODARONE 360 MG/D5W 200 ML 360 MG/200 ML BAG 33.33 MG IV CONT (21:47)
[2025-01-31] MEDS: MAGNESIUM SULF 1 GM/D5W 100 ML 1 GM/100 ML BAG IVPB (21:48)
[2025-02-01] VITALS (18 sets, daily range): BP systolic 98–110; BP diastolic 7–72; PULSE 69–84; RESP 16–26; TEMP 36.8–37.9; O2SAT 95–98; BMI 24.0
--- NOTE | 2025-02-01 | ECHO_ITS ---
Patient Info Name: Fermin Silva Age: 54 years : 1970 Gender: Male Ht: 67 in Wt: 153 lbs BSA: 1.82 m2 HR: 81 bpm BP: 103 / 70 mmHg Heart Rhythm: Sinus Rhythm Technical Quality: Fair Exam Date: 02/01/2025 8:57 AM Exam Location: Echo Lab Patient Status: Inpatient Admit Date: 01/31/2025 Staff Ordering Physician: Edison Wood MD Audit Control Clerk: Saira Posadas RDCS Attending Provider: Edison Wood MD Exam Type: CA echo doppler color flow Study Info Indications - [place] Complete two-dimensional, color flow and Doppler transthoracic echocardiogram is performed. Summary 1. Complete two-dimensional, color flow and Doppler transthoracic echocardiogram is performed. 2. The left ventricle is normal in size and systolic function. The basal anterolateral and basal to mid inferolateral brady are mildly hypokinetic. The left ventricular ejection fraction is visually estimated to be 50-60%. 3. There is no significant valvular disease. Left Ventricle The left ventricle is normal in size and systolic function. The basal anterolateral and basal to mid inferolateral brady are mildly hypokinetic. The left ventricular ejection fraction is visually estimated to be 50-60%. Right Ventricle The right ventricle is normal in size and systolic function. Left Atria The left atrium is normal size. Right Atria The right atrium is normal size. Atrial Septum The atrial septum is grossly normal. Aortic Valve The aortic valve is trileaflet and opens well. There is no aortic regurgitation. Pulmonic Valve The pulmonic valve is not well visualized. There is no color Doppler evidence of pulmonic valve regurgitation. Mitral Valve The mitral valve opens well. There is no mitral regurgitation. Tricuspid Valve The tricuspid valve is normal. There is trace tricuspid regurgitation. Pericardium/Pleural Pericardium is normal in appearance with no evidence for significant pericardial effusion. Inferior Vena Cava Normal inferior vena cava with <50% collapse upon inspiration consistent with elevated right atrial pressure, 8 mmHg. Left Ventricular Outflow Tract Name Value Normal LVOT 2D LVOT Diameter 2.0 cm LVOT Doppler LVOT Peak Gradient 4 mmHg LVOT Mean Gradient 2 mmHg LVOT VTI 15 cm LVOT VTI/AV VTI Ratio 0.9 LVOT Stroke Volume 48 ml LVOT CO 3.4 l/min LVOT CI 1.9 l/min/m2 Pulmonic Valve Name Value Normal RVOT Doppler RVOT Peak Gradient 2 mmHg PV Doppler PV Peak Gradient 3 mmHg Mitral Valve Name Value Normal MV Doppler MV Decel [place] 355 cm/s2 MV PHT 58 ms MV Area (PHT) 3.8 cm2 4.0-5.0 MV Diastolic Function MV E Peak Velocity 71 cm/s MV A Peak Velocity 78 cm/s MV E/A 0.9 MV Decel Time 199 ms MV Annular TDI MV E/e' (Septal) 9.8 <=8.0 MV E/e' (Lateral) 16.1 <=8.0 MV E/e' (Average) 12.9 Tricuspid Valve Name Value Normal TV Regurgitation Doppler TR Peak Velocity 190 cm/s TR Peak Gradient 14 mmHg Estimated PAP/RSVP RA Pressure 8 mmHg <=5 PA Systolic Pressure 22 mmHg <36 RV Systolic Pressure 22 mmHg <36 Aorta Name Value Normal Ascending Aorta Ao Root Diameter (MM) 3.2 cm Ao Root Diam Index (MM) 1.8 cm/m2 Aortic Valve Name Value Normal AV Doppler AV Peak Velocity 120 cm/s AV Peak Gradient 6 mmHg AV Mean Gradient 3 mmHg AV VTI 17 cm AV Area (Cont Eq VTI) 2.7 cm2 >=3.0 AV Area (Cont Eq Edilberto) 2.7 cm2 AV Regurgitation 2D LVOT Area 3.2 cm2 Ventricles Name Value Normal LV Dimensions 2D/MM IVS Diastolic Thickness (2D) 1.0 cm 0.6-1.0 LVID Diastole (2D) 4.7 cm 4.2-5.8 LVIW Diastolic Thickness (2D) 1.0 cm 0.6-1.0 LVID Systole (2D) 3.3 cm 2.5-4.0 LVOT Diameter 2.0 cm LV Mass (2D Cubed) 167.73 g 88.00-224.00 LV Mass Index (2D Cubed) 92 g/m2 49-115 Relative Wall Thickness (2D) 0.41 LV Fractional Shortening/Ejection Fraction 2D/MM LV Fractional Shortening (2D) 30 % 25-43 LV EF (2D Teicholz) 58 % 52-72 LV Diastolic Volume (4C MOD) 79 ml LV EF (4C MOD) 55 % LV Diastolic Volume (2C MOD) 69 ml LV EF (2C MOD) 48 % LV Diastolic Volume (BP MOD) 74 ml 62-150 LV Diastolic Volume Index (BP MOD) 41 ml/m2 34-74 LV Systolic Volume (BP MOD) 37 ml 21-61 LV Systolic Volume Index (BP MOD) 20 ml/m2 11-31 LV EF (BP MOD) 50 % 52-72 LV Diastolic Length (4C) 8.4 cm LV Systolic Length (4C) 6.7 cm LV Stroke Volume (4C MOD) 43 ml Atria Name Value Normal LA Dimensions LA Dimension (MM) 2.9 cm 3.0-4.1 LA Volume (4C A-L) 32 ml LA Volume (BP A-L) 35 ml RA Dimensions RA Area (4C) 13.1 cm2 <=18.0 Report Signatures
[2025-02-01 03:59] LABS: Basophils Absolute Auto 0.1 K/mm3 (0.0-0.1); Basophils Percent Auto 0.4 % (0.2-1.2); Eosinophils Absolute Auto 0.1 K/mm3 (0-0.3); Eosinophils Percent Auto 0.6 % (0-4.4); Hematocrit 44.8 % (42.0-52.0); Hemoglobin 15.7 g/dL (14.0-18.0); Immature Granulocyte Absolute 0.06 K/mm3 (0.00-0.031); Immature Granulocyte Percent A 0.4 % (0-0.5); Lymphocytes Percent Auto 9.8 % (18.3-44.2); Mean Corpuscular Hemoglobin 30.8 pg (26-34); Mean Platelet Volume 9.4 fl (7.4-10.4); Monocytes Absolute Auto 1.3 K/mm3 (0.1-0.6); Monocytes Percent Auto 7.9 % (2.6-8.5); Neutrophils Absolute Auto 13.2 K/mm3 (1.3-6.7); Neutrophils Percent Auto 80.9 % (45.5-73.1); Platelet Count Result 251 k/mm3 (150-375); Red Blood Count 5.09 M/mm3 (4.6-6.20); Red Cell Distribution Width 12.1 % (11.5-14.5); White Blood Count 16.3 K/mm3 (4.5-10.0)
[2025-02-01] MEDS: AMIODARONE 360 MG/D5W 200 ML 360 MG/200 ML BAG 16.67 MG IV CONT (04:05)
[2025-02-01 04:10] LABS: Alanine Aminotransferase 58 U/L (6-50); Albumin Level 3.8 g/dL (3.5-5.1); Alkaline Phosphatase 71 U/L (38-126); Anion Gap 10 mmol/L (4-12); Aspartate Amino Transferase 328 U/L (17-59); Bilirubin,Total 0.9 mg/dL (0.2-1.3); Blood Urea Nitrogen 9 mg/dL (9-20); Calcium 8.8 mg/dL (8.4-10.2); Carbon Dioxide 21 mmol/L (22-30); Chloride 104 mmol/L (98-107); Cholesterol 138 mg/dL (0-200); Estimated CRCL calculation 94 ml/min; Estimated Glomerular Filt Rate > 60; Glucose 232 mg/dL (65-110); HDL Direct 36 mg/dL; Magnesium 1.9 mg/dL (1.6-2.3); Phosphorus 3.1 mg/dL (2.5-4.5); Sodium 135 mmol/L (137-145); Triglycerides 75 mg/dL (<150)
[2025-02-01 04:21] LABS: LDL Cholesterol Direct 80 mg/dL
[2025-02-01] MEDS: ASPIRIN 81 MG ENTERIC TABLET PO (08:11)
[2025-02-01] MEDS: ATORVASTATIN 40 MG TABLET 80 MG PO (08:11)
[2025-02-01] MEDS: ACETAMINOPHEN 325 MG TABLET 650 MG PO (08:12)
[2025-02-01] MEDS: TICAGRELOR 90 MG TABLET PO ×2 (08:12→22:11)
[2025-02-01 08:18] LABS: Glucose Point of Care 250 mg/dl (65-105)
--- NOTE | 2025-02-01 09:18 | P.PNINT_ITS ---
Progress Note: A&P Assessment and Plan (1) ST elevation MS (STEMI): Code(s): I21.3 - ST elevation (STEMI) myocardial infarction of unspecified site Status: Acute Assessment and Plan: 01/31: Patient presented with chest pain radiated the right arm, shortness of breath. EKG showed inferior ST elevation MS with reciprocal ST depression. Status post PTCA/PCI with CELESTE x1 to mid left circumflex, EF 45-50%, patient also has a 60-70% focal stenosis in the mid segment distal to the diagonal branch in the LAD -cardiology following the patient -continue aspirin, statin, ticagrelor -lipid panel is within normal limits -echocardiogram has been ordered (2) Tobacco abuse: Code(s): Z72.0 - Tobacco use Status: Acute Assessment and Plan: Consult on cessation of tobacco use. Patient stated he is going to quit smoking as of this admission (3) Diabetes: Code(s): E11.9 - Type 2 diabetes mellitus without complications Status: Acute Assessment and Plan: Patient has a insulin pump which will continue -Accu-Cheks and sliding scale insulin ACHS (4) Arrhythmia: Code(s): I49.9 - Cardiac arrhythmia, unspecified Status: Acute Assessment and Plan: Patient has episodes of ventricular tachycardia, was started on amiodarone per Cardiology overnight with improvement in his rhythm. Likely related to reperfusion injury -continue to monitor, patient may require metoprolol, will discuss with Cardiology Plan DVT prophylaxis: Status post cardiac catheterization, SCDs Stress ulcer prophylaxis: Not indicated Nutrition: Diabetic and heart healthy diet Code Status: Full code Critical Care Time Spent: 31 minutes Patient may transfer out of the ICU if okay with Cardiology Discussed with patient and his spouse at bedside and updated them with patient's condition and plan of care. I answered their questions Due to a high probability of clinically significant, life threatening deterioration, the patient required my highest level of preparedness to intervene emergently and I personally spent this critical care time directly and personally managing the patient. This critical care time included obtaining a history; examining the patient; pulse oximetry; ordering and review of studies; arranging urgent treatment with development of a management plan; evaluation of patient's response to treatment; frequent reassessment; and discussions with other providers. It was exclusive of separately billable procedures and treating other patients and teaching time. Please see Assessment and Plan section and the rest of the note for further information on patient assessment and treatment This dictation may have been done utilizing a voice recognition system. Attempts have been made to correct errors. However, there may be uncorrected grammatical, spelling, and recognitions errors present. Subjective Date/time seen: 02/01/25 09:18 Interval history: Reason for consult: Inferior wall ST-elevation myocardial infarction status post PTCA/PCI with CELESTE x1 to mid left circumflex, EF 45-50%, patient also has a 60- 70% focal stenosis in the mid segment distal to the diagonal branch in the LAD 02/01/2025: Patient seen and examined in the ICU, is awake, alert, oriented x3. Denies any chest pain, shortness a breath, abdominal pain, nausea, vomiting. States he feels much better. Had multiple episodes of ventricular tachycardia last evening and overnight and was started on amiodarone infusion by Cardiology with much improvement. Remains on amiodarone and 0.5 mg/min. Urine output has been adequate, patient is afebrile, hemodynamically stable Review of Systems Review of Systems: All systems reviewed & are unremarkable except as noted in HPI and below Exam Narrative: General: Pleasant gentleman in no acute distress HEENT:? Pupils equal and reactive, sclera is clear, moist oral mucosa Neck:? Supple Respiratory:? Clear to auscultation bilaterally, no wheezing Cardiac:? S1-S2 normal, regular rate and rhythm Abdomen:? Soft, non tender, non distended, normoactive bowel sounds Extremities:? Palpable pedal pulses bilateral lower extremities, no edema. Right radial TR band in place, radial pulse is palpable, evidence of ecchymosis around the thumb and the wrist on the right side, patient is able to move his fingers on the right hand Neuro:? Patient is awake, alert, oriented, nonfocal, follows simple commands in all extremities and answers to questions appropriately Skin:? No skin lesions noted Psych:? Normal mentation and affect Objective Data Vital Signs Vital Signs: Vital Signs - 24 hr 01/31/25 10:45 01/31/25 10:50 01/31/25 10:55 Temperature 98.1 F Pulse Rate 92 98 Respiratory Rate 16 Blood Pressure 158/86 H Pulse Oximetry 100 Oxygen Delivery Room Air Room Air 01/31/25 11:05 01/31/25 11:06 01/31/25 11:11 Temperature Pulse Rate 92 90 87 Respiratory Rate 16 11 L 11 L Blood Pressure 165/84 H 165/84 H 169/92 H Pulse Oximetry 100 100 100 Oxygen Delivery 01/31/25 11:30 01/31/25 11:49 01/31/25 13:10 Temperature Pulse Rate 84 87 79 Respiratory Rate 16 16 15 Blood Pressure 165/97 H 169/91 H 134/85 Pulse Oximetry 100 100 96 Oxygen Delivery 01/31/25 13:12 01/31/25 13:27 01/31/25 13:42 Temperature 98.2 F Pulse Rate 85 82 90 Respiratory Rate 13 15 15 Blood Pressure 134/85 114/81 112/77 Pulse Oximetry 96 96 96 Oxygen Delivery 01/31/25 13:57 01/31/25 14:00 01/31/25 14:12 Temperature Pulse Rate 89 98 97 Respiratory Rate 17 14 Blood Pressure 113/78 152/82 H Pulse Oximetry 96 97 Oxygen Delivery 01/31/25 14:42 01/31/25 15:12 01/31/25 16:00 Temperature 98 F Pulse Rate 75 98 83 Respiratory Rate 15 18 14 Blood Pressure 144/85 H 123/91 H 131/87 Pulse Oximetry 97 95 96 Oxygen Delivery 01/31/25 16:00 01/31/25 17:00 01/31/25 17:05 Temperature Pulse Rate 82 95 80 Respiratory Rate 23 H Blood Pressure 124/83 Pulse Oximetry 97 Oxygen Delivery 01/31/25 18:00 01/31/25 18:00 01/31/25 19:00 Temperature Pulse Rate 82 82 84 Respiratory Rate 17 14 Blood Pressure 125/83 134/83 Pulse Oximetry 97 96 Oxygen Delivery 01/31/25 19:57 01/31/25 19:59 01/31/25 20:00 Temperature 98.3 F Pulse Rate 84 84 73 Respiratory Rate 14 18 Blood Pressure 123/70 Pulse Oximetry 96 97 Oxygen Delivery Room Air 01/31/25 21:00 01/31/25 21:36 01/31/25 21:40 Temperature Pulse Rate 75 74 75 Respiratory Rate 16 Blood Pressure 123/70 111/70 Pulse Oximetry 96 Oxygen Delivery 01/31/25 21:47 01/31/25 22:00 01/31/25 22:00 Temperature Pulse Rate 86 77 77 Respiratory Rate 16 Blood Pressure 113/72 117/72 Pulse Oximetry 95 Oxygen Delivery 01/31/25 23:00 02/01/25 00:00 02/01/25 00:00 Temperature Pulse Rate 77 78 78 Respiratory Rate 20 20 Blood Pressure 117/60 Pulse Oximetry 95 95 Oxygen Delivery Room Air 02/01/25 00:00 02/01/25 01:00 02/01/25 02:00 Temperature Pulse Rate 73 78 77 Respiratory Rate 16 16 Blood Pressure 110/62 98/7 L Pulse Oximetry 95 95 Oxygen Delivery 02/01/25 02:00 02/01/25 04:00 02/01/25 04:00 Temperature Pulse Rate 77 70 Respiratory Rate 16 Blood Pressure 104/55 L Pulse Oximetry 95 Oxygen Delivery Room Air 02/01/25 04:00 02/01/25 04:05 02/01/25 04:05 Temperature 98.2 F Pulse Rate 70 70 70 Respiratory Rate 18 Blood Pressure 103/70 103/70 Pulse Oximetry 96 Oxygen Delivery 02/01/25 06:00 02/01/25 08:00 Temperature 98.6 F Pulse Rate 81 69 Respiratory Rate 18 Blood Pressure 107/72 Pulse Oximetry 96 Oxygen Delivery Intake/Output Intake/Output: Intake & Output 01/29/25 01/30/25 01/31/25 02/01/25 23:59 23:59 23:59 23:59 Intake Total 390 550 Output Total 700 600 Balance -310 -50 Meds/Results Medications: Active Medications Generic Name Dose Route Start Last Admin Trade Name Freq PRN Reason Stop Dose Admin Acetaminophen 650 mg 02/01/25 07:42 02/01/25 08:12 Acetaminophen 325 Mg Tablet PO 650 mg Q6H PRN Administration Mild Pain (1-3) or Fever Aspirin 81 mg 02/01/25 09:00 02/01/25 08:11 Aspirin 81 Mg Enteric Tablet PO 81 mg QAM BRENDA Administration Atorvastatin Calcium 80 mg 02/01/25 09:00 02/01/25 08:11 Atorvastatin 40 Mg Tablet PO 80 mg DAILY BRENDA Administration Dextrose 12.5 gm 01/31/25 13:23 Dextrose 50% 25 Gm/50 Ml Syringe IV PUSH PRN PRN Hypoglycemia Protocol Glucagon 1 mg 01/31/25 13:23 Glucagon For Inj 1 Mg Vial IM PRN PRN Hypoglycemia Protocol Glucose 15 gm 01/31/25 13:23 Glucose Oral Gel 15 Gm Of Glucse In 37.5 Gm Tube PO PRN PRN Hypoglycemia Protocol Dextrose 1,000 mls @ 100 mls/hr 01/31/25 13:23 Dextrose 5% 1,000 Ml IVPB PRN PRN Hypoglycemia Protocol Metoprolol Succinate 12.5 mg 02/01/25 09:00 Metoprolol Succinate Ext Rel 12.5 Mg Tabcr PO QAM BRENDA Perflutren Lipid Microsphere 0 ml 01/31/25 12:56 Perflutren Lipid Microspheres 1.5 Ml Vial Diluted To 10 Ml Total Volume IV PUSH 02/03/25 12:57 ONCE PRN adequate visualization Protocol Ticagrelor 90 mg 01/31/25 21:00 02/01/25 08:12 Ticagrelor 90 Mg Tablet PO 90 mg Q12HR BRENDA Administration Radiology Results: ITS Impressions Chest X-Ray 01/31/25 11:31 IMPRESSION: No acute cardiopulmonary pathology. Labs Labs: Laboratory Results - last 24 hr 01/31/25 01/31/25 01/31/25 11:01 13:29 14:24 WBC 10.0 RBC 5.18 Hgb 16.1 Hct 46.0 MCV 88.8 MCH 31.1 MCHC 35.0 RDW 12.0 Plt Count 270 MPV 9.1 Immature Gran % (Auto) 0.4 Neut % (Auto) 63.2 Lymph % (Auto) 22.3 [place] % (Auto) 7.6 Eos % (Auto) 5.6 H Baso % (Auto) 0.9 Lymph # (Auto) 2.24 [place] # (Auto) 0.8 H Eos # (Auto) 0.6 H Baso # (Auto) 0.1 Abs Immat Gran (auto) 0.04 H Absolute Neuts (auto) 6.3 Absolute Nucleated RBC 0.000 Nucleated RBC % 0.0 PT 13.8 INR 1.0 APTT 25.8 Sodium 140 Potassium 3.9 Chloride 102 Carbon Dioxide 27 Anion Gap 11 BUN 18 Creatinine 0.89 Estim Creat Clear Calc 80 Estimated GFR > 60 Glucose 124 H POC Capillary Glucose 293 H Hemoglobin A1c 6.5 H Calcium 9.3 Phosphorus Magnesium Total Bilirubin 0.8 AST 17 ALT 15 Alkaline Phosphatase 65 Troponin I 0.014 Total Protein 7.0 Albumin 4.2 Triglycerides 70 Cholesterol 140 LDL Cholesterol Direct 88 HDL Direct 37 Lipase 43 Nasal MRSA (PCR) Not detected 01/31/25 01/31/25 02/01/25 16:48 20:20 03:37 WBC 16.3 H RBC 5.09 Hgb 15.7 Hct 44.8 MCV 88.0 MCH 30.8 MCHC 35.0 RDW 12.1 Plt Count 251 MPV 9.4 Immature Gran % (Auto) 0.4 Neut % (Auto) 80.9 H Lymph % (Auto) 9.8 L [place] % (Auto) 7.9 Eos % (Auto) 0.6 Baso % (Auto) 0.4 Lymph # (Auto) 1.60 [place] # (Auto) 1.3 H Eos # (Auto) 0.1 Baso # (Auto) 0.1 Abs Immat Gran (auto) 0.06 H Absolute Neuts (auto) 13.2 H Absolute Nucleated RBC 0.000 Nucleated RBC % 0.0 PT INR APTT Sodium 137 135 L Potassium 3.8 4.0 Chloride 106 104 Carbon Dioxide 23 21 L Anion Gap 8 10 BUN 10 D 9 Creatinine 0.70 0.74 Estim Creat Clear Calc 99 94 Estimated GFR > 60 > 60 Glucose 169 H 232 H POC Capillary Glucose 188 H Hemoglobin A1c Calcium 8.5 8.8 Phosphorus 3.6 3.1 Magnesium 1.7 1.9 Total Bilirubin 0.7 0.9 AST 454 H 328 H ALT 53 H 58 H Alkaline Phosphatase 67 71 Troponin I Total Protein 6.0 L 7.0 Albumin 3.6 3.8 Triglycerides 75 Cholesterol 138 LDL Cholesterol Direct 80 HDL Direct 36 Lipase Nasal MRSA (PCR) 02/01/25 08:06 WBC RBC Hgb Hct MCV MCH MCHC RDW Plt Count MPV Immature Gran % (Auto) Neut % (Auto) Lymph % (Auto) [place] % (Auto) Eos % (Auto) Baso % (Auto) Lymph # (Auto) [place] # (Auto) Eos # (Auto) Baso # (Auto) Abs Immat Gran (auto) Absolute Neuts (auto) Absolute Nucleated RBC Nucleated RBC % PT INR APTT Sodium Potassium Chloride Carbon Dioxide Anion Gap BUN Creatinine Estim Creat Clear Calc Estimated GFR Glucose POC Capillary Glucose 250 H Hemoglobin A1c Calcium Phosphorus Magnesium Total Bilirubin AST ALT Alkaline Phosphatase Troponin I Total Protein Albumin Triglycerides Cholesterol LDL Cholesterol Direct HDL Direct Lipase Nasal MRSA (PCR) Quality VTE Prophylaxis VTE prophylaxis: mechanical ordered
[2025-02-01] MEDS: METOPROLOL SUCCINATE EXT REL 12.5 MG TABCR PO (11:00)
[2025-02-01 11:13] LABS: Glucose Point of Care 209 mg/dl (65-105)
--- NOTE | 2025-02-01 12:43 | P.PNCA_ITS ---
Progress Note: A&P Assessment and Plan (1) ST elevation [place] (STEMI): Code(s): I21.3 - ST elevation (STEMI) myocardial infarction of unspecified site Status: Acute Plan 54-year-old man with type 1 diabetes presented with inferior [address]-elevation TX who is now status post PCI to the left circumflex ST-elevation TX -status post PCI to left circumflex -obtain transthoracic echocardiogram -continue aspirin 80 p.o. daily and ticagrelor 90 mg q.12 Nonsustained ventricular tachycardia -longest run was 13 seconds overnight for which amiodarone was started -can stop amiodarone and start metoprolol succinate 12.5 mg p.o. daily up ti trate as tolerated Coronary artery disease -residual LAD stenosis to be managed outpatient -continue atorvastatin 80 mg every evening Hyperlipidemia -continue atorvastatin 80 mg every evening Can be moved to IMU where he is awaiting echocardiogram as well as observe patient overnight of his rhythm on telemetry Subjective Date/time seen: 02/01/25 12:43 Interval history: Denies any chest pain or shortness of breath. No orthopnea. Review of Systems Cardiovascular: Cardiovascular: Reports as per HPI Respiratory: Respiratory: Reports as per HPI Exam Const: General: comfortable HENMT: Mouth: Yes moist mucous membranes Eyes: EOM: EOMs intact bilaterally Neck: Neck: no JVD Resp: Effort & Inspection: normal respiratory effort Auscultation: clear to auscultation bilaterally Cardio: Rate: regular rate Rhythm: regular rhythm GI: GI Palp: Yes Soft to palpation Neuro: Speech: normal speech Extrem: General: no pedal edema Other: Right radial post intact. No swelling of right arm or tenderness Objective Data Vital Signs Vital Signs: Vital Signs - 24 hr 01/31/25 13:10 01/31/25 13:12 01/31/25 13:27 Temperature 36.8 C Pulse Rate 79 85 82 Respiratory Rate 15 13 15 Blood Pressure 134/85 134/85 114/81 Pulse Oximetry 96 96 96 Oxygen Delivery 01/31/25 13:42 01/31/25 13:57 01/31/25 14:00 Temperature Pulse Rate 90 89 98 Respiratory Rate 15 17 Blood Pressure 112/77 113/78 Pulse Oximetry 96 96 Oxygen Delivery 01/31/25 14:12 01/31/25 14:42 01/31/25 15:12 Temperature Pulse Rate 97 75 98 Respiratory Rate 14 15 18 Blood Pressure 152/82 H 144/85 H 123/91 H Pulse Oximetry 97 97 95 Oxygen Delivery 01/31/25 16:00 01/31/25 16:00 01/31/25 17:00 Temperature 36.6 C Pulse Rate 83 82 95 Respiratory Rate 14 23 H Blood Pressure 131/87 124/83 Pulse Oximetry 96 97 Oxygen Delivery 01/31/25 17:05 01/31/25 18:00 01/31/25 18:00 Temperature Pulse Rate 80 82 82 Respiratory Rate 17 Blood Pressure 125/83 Pulse Oximetry 97 Oxygen Delivery 01/31/25 19:00 01/31/25 19:57 01/31/25 19:59 Temperature Pulse Rate 84 84 84 Respiratory Rate 14 14 Blood Pressure 134/83 Pulse Oximetry 96 96 Oxygen Delivery Room Air 01/31/25 20:00 01/31/25 21:00 01/31/25 21:36 Temperature 36.8 C Pulse Rate 73 75 74 Respiratory Rate 18 16 Blood Pressure 123/70 123/70 111/70 Pulse Oximetry 97 96 Oxygen Delivery 01/31/25 21:40 01/31/25 21:47 01/31/25 22:00 Temperature Pulse Rate 75 86 77 Respiratory Rate Blood Pressure 113/72 Pulse Oximetry Oxygen Delivery 01/31/25 22:00 01/31/25 23:00 02/01/25 00:00 Temperature Pulse Rate 77 77 78 Respiratory Rate 16 20 20 Blood Pressure 117/72 117/60 Pulse Oximetry 95 95 95 Oxygen Delivery Room Air 02/01/25 00:00 02/01/25 00:00 02/01/25 01:00 Temperature Pulse Rate 78 73 78 Respiratory Rate 16 16 Blood Pressure 110/62 98/7 L Pulse Oximetry 95 95 Oxygen Delivery 02/01/25 02:00 02/01/25 02:00 02/01/25 04:00 Temperature Pulse Rate 77 77 Respiratory Rate 16 Blood Pressure 104/55 L Pulse Oximetry 95 Oxygen Delivery Room Air 02/01/25 04:00 02/01/25 04:00 02/01/25 04:05 Temperature 36.8 C Pulse Rate 70 70 70 Respiratory Rate 18 Blood Pressure 103/70 103/70 Pulse Oximetry 96 Oxygen Delivery 02/01/25 04:05 02/01/25 06:00 02/01/25 08:00 Temperature 37.0 C Pulse Rate 70 81 69 Respiratory Rate 18 Blood Pressure 107/72 Pulse Oximetry 96 Oxygen Delivery 02/01/25 08:00 02/01/25 08:00 02/01/25 08:00 Temperature Pulse Rate 76 69 Respiratory Rate Blood Pressure 107/72 Pulse Oximetry 96 Oxygen Delivery Room Air 02/01/25 10:00 02/01/25 10:00 02/01/25 11:00 Temperature Pulse Rate 73 73 72 Respiratory Rate Blood Pressure 108/70 Pulse Oximetry Oxygen Delivery 02/01/25 12:00 02/01/25 12:00 02/01/25 12:00 Temperature Pulse Rate 77 71 Respiratory Rate Blood Pressure 109/72 Pulse Oximetry 96 Oxygen Delivery Room Air 02/01/25 12:00 Temperature 36.9 C Pulse Rate 77 Respiratory Rate 20 Blood Pressure 109/72 Pulse Oximetry 96 Oxygen Delivery Intake/Output Intake/Output: Intake & Output 01/29/25 01/30/25 01/31/25 02/01/25 23:59 23:59 23:59 23:59 Intake Total 390 1031.9 Output Total 700 600 Balance -310 431.9 Meds/Results Medications: Active Medications Generic Name Dose Route Start Last Admin Trade Name Freq PRN Reason Stop Dose Admin Acetaminophen 650 mg 02/01/25 07:42 02/01/25 08:12 Acetaminophen 325 Mg Tablet PO 650 mg Q6H PRN Administration Mild Pain (1-3) or Fever Aspirin 81 mg 02/01/25 09:00 02/01/25 08:11 Aspirin 81 Mg Enteric Tablet PO 81 mg QAM BRENDA Administration Atorvastatin Calcium 80 mg 02/01/25 09:00 02/01/25 08:11 Atorvastatin 40 Mg Tablet PO 80 mg DAILY BRENDA Administration Dextrose 12.5 gm 01/31/25 13:23 Dextrose 50% 25 Gm/50 Ml Syringe IV PUSH PRN PRN Hypoglycemia Protocol Glucagon 1 mg 01/31/25 13:23 Glucagon For Inj 1 Mg Vial IM PRN PRN Hypoglycemia Protocol Glucose 15 gm 01/31/25 13:23 Glucose Oral Gel 15 Gm Of Glucse In 37.5 Gm Tube PO PRN PRN Hypoglycemia Protocol Dextrose 1,000 mls @ 100 mls/hr 01/31/25 13:23 Dextrose 5% 1,000 Ml IVPB PRN PRN Hypoglycemia Protocol Metoprolol Succinate 12.5 mg 02/01/25 09:00 02/01/25 11:00 Metoprolol Succinate Ext Rel 12.5 Mg Tabcr PO 12.5 mg QAM BRENDA Administration Perflutren Lipid Microsphere 0 ml 01/31/25 12:56 Perflutren Lipid Microspheres 1.5 Ml Vial Diluted To 10 Ml Total Volume IV PUSH 02/03/25 12:57 ONCE PRN adequate visualization Protocol Ticagrelor 90 mg 01/31/25 21:00 02/01/25 08:12 Ticagrelor 90 Mg Tablet PO 90 mg Q12HR BRENDA Administration Radiology Results: ITS Impressions Chest X-Ray 01/31/25 11:31 IMPRESSION: No acute cardiopulmonary pathology. Labs Labs: Laboratory Results - last 24 hr 01/31/25 01/31/25 01/31/25 11:01 13:29 14:24 WBC RBC Hgb Hct MCV MCH MCHC RDW Plt Count MPV Immature Gran % (Auto) Neut % (Auto) Lymph % (Auto) [place] % (Auto) Eos % (Auto) Baso % (Auto) Lymph # (Auto) [place] # (Auto) Eos # (Auto) Baso # (Auto) Abs Immat Gran (auto) Absolute Neuts (auto) Absolute Nucleated RBC Nucleated RBC % Sodium Potassium Chloride Carbon Dioxide Anion Gap BUN Creatinine Estim Creat Clear Calc Estimated GFR Glucose POC Capillary Glucose 293 H Hemoglobin A1c 6.5 H Calcium Phosphorus Magnesium Total Bilirubin AST ALT Alkaline Phosphatase Total Protein Albumin Triglycerides 70 Cholesterol 140 LDL Cholesterol Direct 88 HDL Direct 37 Nasal MRSA (PCR) Not detected 01/31/25 01/31/25 02/01/25 16:48 20:20 03:37 WBC 16.3 H RBC 5.09 Hgb 15.7 Hct 44.8 MCV 88.0 MCH 30.8 MCHC 35.0 RDW 12.1 Plt Count 251 MPV 9.4 Immature Gran % (Auto) 0.4 Neut % (Auto) 80.9 H Lymph % (Auto) 9.8 L [place] % (Auto) 7.9 Eos % (Auto) 0.6 Baso % (Auto) 0.4 Lymph # (Auto) 1.60 [place] # (Auto) 1.3 H Eos # (Auto) 0.1 Baso # (Auto) 0.1 Abs Immat Gran (auto) 0.06 H Absolute Neuts (auto) 13.2 H Absolute Nucleated RBC 0.000 Nucleated RBC % 0.0 Sodium 137 135 L Potassium 3.8 4.0 Chloride 106 104 Carbon Dioxide 23 21 L Anion Gap 8 10 BUN 10 D 9 Creatinine 0.70 0.74 Estim Creat Clear Calc 99 94 Estimated GFR > 60 > 60 Glucose 169 H 232 H POC Capillary Glucose 188 H Hemoglobin A1c Calcium 8.5 8.8 Phosphorus 3.6 3.1 Magnesium 1.7 1.9 Total Bilirubin 0.7 0.9 AST 454 H 328 H ALT 53 H 58 H Alkaline Phosphatase 67 71 Total Protein 6.0 L 7.0 Albumin 3.6 3.8 Triglycerides 75 Cholesterol 138 LDL Cholesterol Direct 80 HDL Direct 36 Nasal MRSA (PCR) 02/01/25 02/01/25 08:06 11:08 WBC RBC Hgb Hct MCV MCH MCHC RDW Plt Count MPV Immature Gran % (Auto) Neut % (Auto) Lymph % (Auto) [place] % (Auto) Eos % (Auto) Baso % (Auto) Lymph # (Auto) [place] # (Auto) Eos # (Auto) Baso # (Auto) Abs Immat Gran (auto) Absolute Neuts (auto) Absolute Nucleated RBC Nucleated RBC % Sodium Potassium Chloride Carbon Dioxide Anion Gap BUN Creatinine Estim Creat Clear Calc Estimated GFR Glucose POC Capillary Glucose 250 H 209 H Hemoglobin A1c Calcium Phosphorus Magnesium Total Bilirubin AST ALT Alkaline Phosphatase Total Protein Albumin Triglycerides Cholesterol LDL Cholesterol Direct HDL Direct Nasal MRSA (PCR)
--- NOTE | 2025-02-01 14:33 | PCCPR ---
Spoke with Wiil at bedside. Overview of program given. He verbalized understanding and interested in getting started. Explained our coordinator will be giving him a call shortly once he is seen in clinic post dc. States he has some flexibility in his schedule to fit the program into his work day.
--- NOTE | 2025-02-01 16:20 | P.CONIM_ITS ---
HPI Date of Consult Consult date: 02/01/25 Requesting Physician: Edison Wood MD Primary Care Provider: [facility] PATCHER PHYSICIAN Consult Narrative Narrative: Fermin Silva is a 54 year old male [facility] Family History Family History (Updated 01/31/25 @ 13:53 by Keren Bernal RN) Mother Breast cancer Thyroid condition Social History Social History (Updated 01/31/25 @ 11:54 by Edison Wood MD) Smoking packs per day: 1 Smoking cigarettes per day: 20.0 Years smoked: 30 Smoking pack-years: 30.00 Smoking status: Current every day smoker Tobacco type: cigarettes Second hand tobacco smoke exposure: No Alcohol intake: never Substance use: never Substance use type: does not use Do You Feel Safe in your Home?: Yes Lack of Transportation: No Lack of Food: Never True Current Housing: I Have Housing Concerned About Future Housing: No Difficulty Paying Gas/Electric Bills: No Difficulty Paying for Meds: No Currently Unemployed: No Education: Associate Degree Difficulty w/ Childcare or Family Care: No Spiritual care concerns: No Meds Home Medications and Allergies Home Medications ?Medication ?Instructions ?Recorded ?Confirmed ?Type blood sugar diagnostic (Accu-Chek 01/31/25 01/31/25 History Guide test strips) insulin aspart (niacinamide) 100 unit subcut .continuos Diabetes 01/31/25 01/31/25 History (U-100) 100 unit/mL subcutaneous solution (Fiasp U-100 Insulin) ticagrelor 90 mg tablet (Brilinta) 90 mg PO Q12HR 90 days #180 tabs 02/01/25 Rx Allergies Allergy/AdvReac Type Severity Reaction Status Date / Time No Known Allergies Allergy Mild Unverified 07/27/13 10:15 Vital Signs Vital Signs - 24 hr 01/31/25 17:00 01/31/25 17:05 01/31/25 18:00 Temperature Pulse Rate 95 80 82 Respiratory Rate 23 H 17 Blood Pressure 124/83 125/83 Pulse Oximetry 97 97 Oxygen Delivery 01/31/25 18:00 01/31/25 19:00 01/31/25 19:57 Temperature Pulse Rate 82 84 84 Respiratory Rate 14 14 Blood Pressure 134/83 Pulse Oximetry 96 96 Oxygen Delivery Room Air 01/31/25 19:59 01/31/25 20:00 01/31/25 21:00 Temperature 36.8 C Pulse Rate 84 73 75 Respiratory Rate 18 16 Blood Pressure 123/70 123/70 Pulse Oximetry 97 96 Oxygen Delivery 01/31/25 21:36 01/31/25 21:40 01/31/25 21:47 Temperature Pulse Rate 74 75 86 Respiratory Rate Blood Pressure 111/70 113/72 Pulse Oximetry Oxygen Delivery 01/31/25 22:00 01/31/25 22:00 01/31/25 23:00 Temperature Pulse Rate 77 77 77 Respiratory Rate 16 20 Blood Pressure 117/72 117/60 Pulse Oximetry 95 95 Oxygen Delivery 02/01/25 00:00 02/01/25 00:00 02/01/25 00:00 Temperature Pulse Rate 78 78 73 Respiratory Rate 20 16 Blood Pressure 110/62 Pulse Oximetry 95 95 Oxygen Delivery Room Air 02/01/25 01:00 02/01/25 02:00 02/01/25 02:00 Temperature Pulse Rate 78 77 77 Respiratory Rate 16 16 Blood Pressure 98/7 L 104/55 L Pulse Oximetry 95 95 Oxygen Delivery 02/01/25 04:00 02/01/25 04:00 02/01/25 04:00 Temperature 36.8 C Pulse Rate 70 70 Respiratory Rate 18 Blood Pressure 103/70 Pulse Oximetry 96 Oxygen Delivery Room Air 02/01/25 04:05 02/01/25 04:05 02/01/25 06:00 Temperature Pulse Rate 70 70 81 Respiratory Rate Blood Pressure 103/70 Pulse Oximetry Oxygen Delivery 02/01/25 08:00 02/01/25 08:00 02/01/25 08:00 Temperature 37.0 C Pulse Rate 69 76 Respiratory Rate 18 Blood Pressure 107/72 Pulse Oximetry 96 96 Oxygen Delivery Room Air 02/01/25 08:00 02/01/25 10:00 02/01/25 10:00 Temperature Pulse Rate 69 73 73 Respiratory Rate Blood Pressure 107/72 108/70 Pulse Oximetry Oxygen Delivery 02/01/25 11:00 02/01/25 12:00 02/01/25 12:00 Temperature Pulse Rate 72 77 Respiratory Rate Blood Pressure 109/72 Pulse Oximetry 96 Oxygen Delivery Room Air 02/01/25 12:00 02/01/25 12:00 Temperature 36.9 C Pulse Rate 71 77 Respiratory Rate 20 Blood Pressure 109/72 Pulse Oximetry 96 Oxygen Delivery Results Labs 02/01/25 03:37 02/01/25 03:37 Labs: Short CBC 02/01/25 Range/Units 03:37 WBC 16.3 H (4.5-10.0) K/mm3 Hgb 15.7 (14.0-18.0) g/dL Hct 44.8 (42.0-52.0) % Plt Count 251 (150-375) k/mm3 BMP 01/31/25 02/01/25 20:20 03:37 Sodium 137 135 L Potassium 3.8 4.0 Chloride 106 104 Carbon Dioxide 23 21 L BUN 10 D 9 Creatinine 0.70 0.74 Glucose 169 H 232 H Calcium 8.5 8.8 Liver Function 01/31/25 02/01/25 Range/Units 20:20 03:37 Total Bilirubin 0.7 0.9 (0.2-1.3) mg/dL AST 454 H 328 H (17-59) U/L ALT 53 H 58 H (6-50) U/L Alkaline Phosphatase 67 71 (38-126) U/L Albumin 3.6 3.8 (3.5-5.1) g/dL
[2025-02-01 17:12] LABS: Glucose Point of Care 146 mg/dl (65-105)
[2025-02-01 21:06] LABS: Glucose Point of Care 148 mg/dl (65-105)
[2025-02-02] VITALS (9 sets, daily range): BP systolic 101–102; BP diastolic 62–65; PULSE 75–97; RESP 12–20; TEMP 36.8–37.3; O2SAT 96
[2025-02-02] MEDS: ATORVASTATIN 40 MG TABLET 80 MG PO (08:39)
[2025-02-02] MEDS: ASPIRIN 81 MG ENTERIC TABLET PO (08:39)
[2025-02-02] MEDS: METOPROLOL SUCCINATE EXT REL 12.5 MG TABCR PO (08:40)
[2025-02-02] MEDS: TICAGRELOR 90 MG TABLET PO (08:40)
--- NOTE | 2025-02-02 09:06 | P.PNIM_ITS ---
Progress Note: A&P Assessment and Plan (1) ST elevation [place] (STEMI): Code(s): I21.3 - ST elevation (STEMI) myocardial infarction of unspecified site Status: Acute Assessment and Plan: 01/31: Patient presented with chest pain radiated the right arm, shortness of breath. EKG showed inferior ST elevation [place] with reciprocal ST depression. Status post PTCA/PCI with CELESTE x1 to mid left circumflex, EF 45-50%, patient also has a 60-70% focal stenosis in the mid segment distal to the diagonal branch in the LAD -cardiology following the patient -continue aspirin, statin, ticagrelor -lipid panel is within normal limits -started on metoprolol 02/01/2025: Echocardiogram Summary 1. Complete two-dimensional, color flow and Doppler transthoracic echocardiogram is performed. 2. The left ventricle is normal in size and systolic function. The basal anterolateral and basal to mid inferolateral brady are mildly hypokinetic. The left ventricular ejection fraction is visually estimated to be 50-60%. 3. There is no significant valvular disease. (2) Tobacco abuse: Code(s): Z72.0 - Tobacco use Status: Acute Assessment and Plan: Consult on cessation of tobacco use. Patient stated he is going to quit smoking as of this admission (3) Diabetes: Code(s): E11.9 - Type 2 diabetes mellitus without complications Status: Acute Assessment and Plan: Patient has a insulin pump which will continue -Accu-Cheks and sliding scale insulin ACHS (4) Arrhythmia: Code(s): I49.9 - Cardiac arrhythmia, unspecified Status: Acute Assessment and Plan: Patient has episodes of ventricular tachycardia, was started on amiodarone per Cardiology overnight with improvement in his rhythm. Likely related to reperfusion injury -continue to monitor, patient may require metoprolol, will discuss with Cardiology -patient was started on metoprolol on 02/01 with improvement in arrhythmias Plan DVT prophylaxis: Status post cardiac catheterization, SCDs Stress ulcer prophylaxis: Not indicated Nutrition: Diabetic and heart healthy diet Code Status: Full code Discussed with patient and his spouse at bedside and updated them with patient's condition and plan of care. I answered their questions Due to a high probability of clinically significant, life threatening deterioration, the patient required my highest level of preparedness to intervene emergently and I personally spent this critical care time directly and personally managing the patient. This critical care time included obtaining a history; examining the patient; pulse oximetry; ordering and review of studies; arranging urgent treatment with development of a management plan; evaluation of patient's response to treatment; frequent reassessment; and discussions with other providers. It was exclusive of separately billable procedures and treating other patients and teaching time. Please see Assessment and Plan section and the rest of the note for further information on patient assessment and treatment This dictation may have been done utilizing a voice recognition system. Attempts have been made to correct errors. However, there may be uncorrected grammatical, spelling, and recognitions errors present. Subjective Date/time seen: 02/02/25 09:06 Interval history: Reason for consult: Inferior wall ST-elevation myocardial infarction status post PTCA/PCI with CELESTE x1 to mid left circumflex, EF 45-50%, patient also has a 60- 70% focal stenosis in the mid segment distal to the diagonal branch in the LAD 02/02/2025: Patient being seen for hospitalist group Patient seen and examined is awake, alert, oriented, nonfocal had denies any chest pain, shortness O breath, nausea, vomiting, diaphoresis. Hemodynamically stable, no arrhythmias noted overnight. Review of Systems Review of Systems: All systems reviewed & are unremarkable except as noted in HPI and below Exam Narrative: General: Pleasant gentleman in no acute distress HEENT:? Pupils equal and reactive, sclera is clear, moist oral mucosa Neck:? Supple Respiratory:? Clear to auscultation bilaterally, no wheezing Cardiac:? S1-S2 normal, regular rate and rhythm Abdomen:? Soft, non tender, non distended, normoactive bowel sounds Extremities:? Palpable pedal pulses bilateral lower extremities, no edema. Right radial TR band in place, radial pulse is palpable, evidence of ecchymosis around the thumb and the wrist on the right side, patient is able to move his fingers on the right hand Neuro:? Patient is awake, alert, oriented, nonfocal, follows simple commands in all extremities and answers to questions appropriately Skin:? No skin lesions noted Psych:? Normal mentation and affect Objective Data Vital Signs Vital Signs: Vital Signs - 24 hr 02/01/25 10:00 02/01/25 10:00 02/01/25 11:00 Temperature Pulse Rate 73 73 72 Respiratory Rate Blood Pressure 108/70 Pulse Oximetry Oxygen Delivery 02/01/25 12:00 02/01/25 12:00 02/01/25 12:00 Temperature Pulse Rate 77 71 Respiratory Rate Blood Pressure 109/72 Pulse Oximetry 96 Oxygen Delivery Room Air 02/01/25 12:00 02/01/25 14:00 02/01/25 14:30 Temperature 98.4 F Pulse Rate 77 79 79 Respiratory Rate 20 Blood Pressure 109/72 Pulse Oximetry 96 Oxygen Delivery 02/01/25 16:00 02/01/25 16:00 02/01/25 16:00 Temperature 98.2 F Pulse Rate 70 83 Respiratory Rate 20 Blood Pressure 104/64 Pulse Oximetry 98 97 Oxygen Delivery Room Air 02/01/25 18:00 02/01/25 19:52 02/01/25 19:53 Temperature Pulse Rate 84 77 77 Respiratory Rate 26 H Blood Pressure Pulse Oximetry 97 Oxygen Delivery Room Air 02/01/25 20:00 02/01/25 22:00 02/02/25 00:00 Temperature 100.2 F H Pulse Rate 80 80 75 Respiratory Rate 18 20 Blood Pressure 106/57 L Pulse Oximetry 96 96 Oxygen Delivery Room Air 02/02/25 00:00 02/02/25 00:00 02/02/25 03:00 Temperature 99.0 F Pulse Rate 75 75 80 Respiratory Rate 20 Blood Pressure Pulse Oximetry 96 Oxygen Delivery 02/02/25 03:58 02/02/25 03:59 02/02/25 04:00 Temperature 99.2 F Pulse Rate 80 80 94 Respiratory Rate 20 16 Blood Pressure 102/62 Pulse Oximetry 96 96 Oxygen Delivery Room Air 02/02/25 06:00 02/02/25 08:00 02/02/25 08:00 Temperature Pulse Rate 88 97 97 Respiratory Rate 12 Blood Pressure Pulse Oximetry 96 Oxygen Delivery Room Air 02/02/25 08:00 02/02/25 08:40 Temperature 98.3 F Pulse Rate 97 96 Respiratory Rate 12 Blood Pressure 101/65 Pulse Oximetry 96 Oxygen Delivery Intake/Output Intake/Output: Intake & Output 01/30/25 01/31/25 02/01/25 02/02/25 23:59 23:59 23:59 23:59 Intake Total 390 1580.0 690 Output Total 700 600 650 Balance -310 980.0 40 Meds/Results Medications: Active Medications Generic Name Dose Route Start Last Admin Trade Name Freq PRN Reason Stop Dose Admin Acetaminophen 650 mg 02/01/25 07:42 02/01/25 08:12 Acetaminophen 325 Mg Tablet PO 650 mg Q6H PRN Administration Mild Pain (1-3) or Fever Aspirin 81 mg 02/01/25 09:00 02/02/25 08:39 Aspirin 81 Mg Enteric Tablet PO 81 mg QAM BRENDA Administration Atorvastatin Calcium 80 mg 02/01/25 09:00 02/02/25 08:39 Atorvastatin 40 Mg Tablet PO 80 mg DAILY BERNDA Administration Dextrose 12.5 gm 01/31/25 13:23 Dextrose 50% 25 Gm/50 Ml Syringe IV PUSH PRN PRN Hypoglycemia Protocol Glucagon 1 mg 01/31/25 13:23 Glucagon For Inj 1 Mg Vial IM PRN PRN Hypoglycemia Protocol Glucose 15 gm 01/31/25 13:23 Glucose Oral Gel 15 Gm Of Glucse In 37.5 Gm Tube PO PRN PRN Hypoglycemia Protocol Dextrose 1,000 mls @ 100 mls/hr 01/31/25 13:23 Dextrose 5% 1,000 Ml IVPB PRN PRN Hypoglycemia Protocol Metoprolol Succinate 12.5 mg 02/01/25 09:00 02/02/25 08:40 Metoprolol Succinate Ext Rel 12.5 Mg Tabcr PO 12.5 mg QAM BRENDA Administration Perflutren Lipid Microsphere 0 ml 01/31/25 12:56 Perflutren Lipid Microspheres 1.5 Ml Vial Diluted To 10 Ml Total Volume IV PUSH 02/03/25 12:57 ONCE PRN adequate visualization Protocol Ticagrelor 90 mg 01/31/25 21:00 02/02/25 08:40 Ticagrelor 90 Mg Tablet PO 90 mg Q12HR BRENDA Administration Radiology Results: ITS Impressions Chest X-Ray 01/31/25 11:31 IMPRESSION: No acute cardiopulmonary pathology. Labs Labs: Laboratory Results - last 24 hr 02/01/25 02/01/25 02/01/25 11:08 17:06 20:59 POC Capillary Glucose 209 H 146 H 148 H Quality VTE Prophylaxis VTE prophylaxis: mechanical ordered
--- NOTE | 2025-02-02 09:07 | P.DS_ITS ---
DS: Admitting Diagnosis Discharge Date 02/02/2025 Admitting Diagnosis STEMI DS: Discharge Diagnosis Discharge Diagnosis (1) ST elevation MT (STEMI): Code(s): I21.3 - ST elevation (STEMI) myocardial infarction of unspecified site Status: Acute Plan 54-year-old man with type 1 diabetes presented with inferior ST-elevation MT who is now status post PCI to the left circumflex ST-elevation MT -status post PCI to left circumflex -TTE showed normal EF with mild hypokinesis of the basal anterolateral and basal to mid inferolateral brady. -continue aspirin 80 p.o. daily and ticagrelor 90 mg q.12 -Cardiac rehab referral -Aggressive risk factor modification including immediate and indefinite smoking cessation. Offered nicotine patches but patient states he will quit cold . Nonsustained ventricular tachycardia -longest run was 13 seconds overnight for which amiodarone was started. 3 beat run NSVT on telemetry yesterday around noon, no ectopy since that time. -Continue metoprolol succinate 12.5mg daily. Coronary artery disease -residual LAD stenosis to be managed outpatient -continue atorvastatin 80 mg every evening Hyperlipidemia -continue atorvastatin 80 mg every evening Discharge today with close outpatient follow up. DS: Summary Hospital Course Hospital Course: Fermin Silva is a 54-year-old male smoker with late onset type 1 diabetes mellitus diagnosed in 2019 as per patient; tobacco abuse; no known prior cardiac history. Patient presented to [facility] Emergency Room on 01/31/2025 with complaints of right-sided arm discomfort which was followed by chest disc omfort that started about 2.5 hours prior to arrival. He denied shortness of breath, palpitations, dizziness or syncope. Patient denies any known prior cardiac history including clinical MT. No known family history of early CAD. His EKG showed sinus rhythm, ST-elevation in the inferior leads with reciprocal ST depression. Cardiac catheterization lab was activated for primary PCI. Patient received aspirin, ticagrelor, atorvastatin, and bolus of unfractionated heparin in the ER. In the record label intern he underwent PCI/CELESTE x 1 to the LCX. Cath findings are as follows: 1. CAD a) 100% thrombotic occlusion of mid left circumflex artery (infarct-related vessel); b) about 60-70% focal stenosis mid LCX distal to diagonal branch c) mild diffuse plaque mid-distal RCA 2. Borderline LV systolic function, ejection fraction about 45-50% with inferior wall hypokinesis; LVEDP elevated at 33 mmHg. 3. Primary PCI-IVUS/stenting of totally occluded mid LCX using a 4.0 x 22 mm Medtronic kennedy frontier zotarolimus eluting stent. He recovered in the hospital uneventfully. He had some NSVT which was addressed with IV amiodarone and has not had further ectopy. Echocardiogram showed normal LV systolic function. He is feeling well and denies any chest pain, shortness of breath, palpitations. Stable and appropriate for discharge from the hospital today. Time Spent with Patient Time attestation: Total time spent providing and/or coordinating discharge services: Exam Const: General: comfortable HENMT: Mouth: Yes moist mucous membranes Eyes: EOM: EOMs intact bilaterally Neck: Neck: no JVD Resp: Effort & Inspection: normal respiratory effort Auscultation: clear to auscultation bilaterally Cardio: Rate: regular rate Rhythm: regular rhythm Neuro: Speech: normal speech Extrem: General: no pedal edema Other: Right radial post intact. No swelling of right arm or tenderness DS: Data Data Completed and Pending Labs on day of discharge: Labs from last 24 hours 02/01/25 02/01/25 02/01/25 20:59 17:06 11:08 POC Capillary Glucose 148 H 146 H 209 H Discharge Plan Discharge Attending physician on discharge: Yoly Grimes Consulting providers: Juan Zee Mohammed Discharging Clinician: Leydi Rivas Patient Disposition: Home, Self-Care Activity: may shower Diet: heart healthy Wound Care Instructions: other - see discharge instructions Discharge Instructions: [facility] [address] [place], [place] [id number] DISCHARGE INSTRUCTIONS - POST PCI Activity 1. No driving for 24 hours. 2. No lifting more than 5 lb with affected arm for 1 week. 3. May shower but no excessive soaking of affected hand/wrist (such as washing dishes), swimming pool or hot tub for 5 days. 4. No strenuous exercise or activity (including sexual activity) until you are released to do so. Wound Care 1. May remove arm board in the morning if not already removed 2. May remove gauze dressing in the morning and put Band-Aid over affected radial site. Keep site covered for 3 days. 3. Observe for redness, drainage, swelling or bleeding Medications DO NOT STOP YOUR MEDICATIONS ONLY YOUR TITLE I COORDINATOR CAN STOP THE FOLLOWING MEDICATIONS - PLEASE CALL THE OFFICE WITH QUESTIONS. *Aspirin *Ticagrelor (Brilinta) *Atorvastatin *Metoprolol Important Reminders 1. Keep your stent card in your wallet at all times 2. Follow a heart healthy diet paying extra attention to cholesterol and fats. 3. Stay hydrated. 4. If you have chest pain unrelieved by rest or nitroglycerin (if prescribed) call 911 immediately. 5. If you miss one dose of Brilinta (if prescribed) take a tablet at the next time due. If you miss 2 doses take a tablet when you remember and resume at the next time due. *For any other questions please call the office at [phone]. Office hours are 8AM 4:30PM Saturday through Saturday. Patient Instructions: Antibiotic Form, Metoprolol (By mouth), Aspirin (By mouth), Atorvastatin (By mouth), Ticagrelor (By mouth), Heart Attack (GEN), Coronary Intravascular Stent Placement (GEN) Patient Language: Latvian Stand Alone Forms: General Discharge Information Follow-up/Referrals: Edison Wood MD [Physician] - (02/16/25 at 9:00. Arrive at 8:45. ) Discharge Medications: New Brilinta 90 mg Tablet 90 mg PO Q12HR 90 Days Qty: 180 3RF aspirin 81 mg Tablet,Delayed Release (Dr/Ec) 81 mg PO QAM 30 Days Qty: 30 11RF atorvastatin 40 mg Tablet 80 mg PO DAILY 30 Days Qty: 60 11RF metoprolol succinate [Toprol XL] 25 mg tablet extended release 24 hr 12.5 mg PO QAM 30 Days Qty: 15 11RF Continued (DME) Accu-Chek Guide test strips Strip MISCELLANEOUS Fiasp U-100 Insulin 100 unit/mL solution 100 unit subcut .continuos Patient Comments: Administered through continuous Insulin pump - Medtronic pump, Basal rate set at 0.9 units/hr. Date of admission: 01/31/25 11:05 Primary Care Provider: PHYSICIAN,ADJUNCT TRAINER Admitting Provider: Edison Wood Attending physician on admission: Edison Wood Condition: Stable Quality VTE Prophylaxis VTE prophylaxis: mechanical ordered
== END 2025-02-02 10:39 | disposition home or self-care (01) | DRG 322 ==
LOC: ANHED 11:15 → ANHICU 15:15
PROVIDERS: Internal Medicine; Admitting Provider Internal Medicine Cardiovascular Disease; Emergency Provider Emergency Medicine; Visit Provider Internal Medicine
PROC: 4A023N7 Measurement of Cardiac Sampling and Pressure, Left Heart, Percutaneous Approach (ICD-10-PCS; CPT 93452; principal; 2025-01-31 11:15)
PROC: 027034Z Dilation of Coronary Artery, One Artery with Drug-eluting Intraluminal Device, Percutaneous Approach (ICD-10-PCS; 2025-01-31 11:15)
PROC: 027034Z Dilation of Coronary Artery, One Artery with Drug-eluting Intraluminal Device, Percutaneous Approach (ICD-10-PCS; 2025-01-31 11:15)
DX: I21.21 ST elevation (STEMI) myocardial infarction involving left circumflex coronary artery (principal); I47.20 Ventricular tachycardia, unspecified; I25.10 Atherosclerotic heart disease of native coronary artery without angina pectoris; E10.9 Type 1 diabetes mellitus without complications; F17.210 Nicotine dependence, cigarettes, uncomplicated; E78.5 Hyperlipidemia, unspecified; Z79.4 Long term (current) use of insulin; Z96.41 Presence of insulin pump (external) (internal)
CPT/HCPCS: 36415; 71045; 80053; 80061; 82948; 83036; 83690; 83735; 84100; 84484; 85025; 85610; 85730; 87641; 92978; 93005; 93306; 93458; 96374; 99291; A9270; C1725; C1753; C1769; C1874; C1887; C1894; C9606; J0282; J0583; J1644; J2003; J2250; J2305; J3010; J3475; J7030; J7040

== ENCOUNTER 2025-03-25 16:15 | Outpatient (RCR) | payer OTHER, SELFPAY ==
[2025-03-11 17:16] LABS: Glucose Point of Care 94 mg/dl (65-105)
== END 2025-03-26 14:55 | disposition home or self-care (01) ==
LOC: ANHCPREHAB 16:15
PROVIDERS: Visit Provider Internal Medicine Cardiovascular Disease
DX: Z95.5 Presence of coronary angioplasty implant and graft (principal)
CPT/HCPCS: 93798

== ENCOUNTER 2025-06-07 08:37 | Outpatient (CLI) | payer OTHER, SELFPAY ==
--- OUTSIDE RECORDS SUMMARY | 2025-06-07 08:40 | XMS_ITS | Referral Summary ---
Author Organization [address] lt Address [address] [place] [address] Care Team Providers Care Copy Center Operator Name Role Phone Jose Elias Babb MD Primary Care Provider [phone] Encounters Date Type Department Care Team Description 05/25/2025 Results Follow-Up [facility] [address] [address] Jose Elias Babb MD Stool DNA - Cologuard 05/19/2025 9:15 AM CDT Office Visit 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 (Primary Dx); History of ST elevation myocardial infarction (STEMI); Status post angioplasty with stent; Type 1 diabetes mellitus without complication (HCC); Sleep disorder; History of tobacco abuse 04/28/2025 8:00 AM CDT Office Visit [facility] [address] [address] Jose Elias Babb MD Coronary artery disease involving koi coronary artery of koi heart without angina pectoris (Primary Dx); Colon cancer screening; Moderate tobacco use disorder, in early remission; [place] (latent autoimmune diabetes in adults), managed as type 1 (HCC); Mixed diabetic hyperlipidemia associated with type 1 diabetes mellitus (CMS/HCC) (HCC) 04/20/2025 Results Follow-Up [facility] Diabetes Endocrine Care at [address] [place] [phone] Elena Boland, PILAR Albumin Creatinine Ratio, Urine, Lipid panel, Comprehensive metabolic panel, eGFR 04/19/2025 9:10 AM CDT Lab [facility] Outpatient Lab - Outpatient Center at [address] [id number] Mixed diabetic hyperlipidemia associated with type 1 diabetes mellitus (CMS/HCC) (HCC) 04/19/2025 8:30 AM CDT Office Visit [facility] Diabetes Endocrine Care at [address] [place] [address] Elena Boland, PILAR [place] (latent autoimmune diabetes in adults), managed as type 1 ([facility]) (Primary Dx); Mixed diabetic hyperlipidemia associated with type 1 diabetes mellitus (CMS/HCC) (HCC); Medtronic 780G Insulin pump in place 03/24/[address] [facility] Cardiology [address] [facility] [address] [place] [address] Edison Wood MD 03/15/[address] [facility]ocrine Care at [address] [place] [address] Elena Boland NP from Last 3 Months Allergies No known active allergies Medications blood-glucose meter kit 1 each daily One-Touch Device 1 each 0 Active insulin admin supplies (InPen, for NovoLOG or Fiasp,) insulin pen Inject 1 Device under the skin 3 (three) times a day before meals Use Medtronic inpen with Novolog to dose insulin e10.65 1 each 1 2 Active insulin aspart niacinamide (FIASP) 100 unit/mL vial for injectionIndicat ions:type 2 diabetes mellitus Infuse insulin via insulin pump. Total daily dose of insulin 60 units. 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 25 tablet 3 5 Active mupirocin (BACTROBAN) 2 % ointmentIndicati ons:Minor Bacterial Skin Infections Apply topically 3 (three) times a day 22 g 4 5 Active blood glucose diagnostic (Accu-Chek Guide test strips) strip Use to test blood sugars and callibrate Medtronic insulin pump 4 times/day. 400 strip 3 5 Active Active Problems Problem Noted Date Diagnosed Date Coronary artery disease invo lving koi coronary artery of koi heart without angina pectoris 04/28/2025 Assessment & Plan (04/28/2025 12:27 PM CDT): Stable, not well controlled; patient admitted for NSTEMI; treated with stenting; now returned to full activity Continue atorvastatin 40 mg daily, ASA 81 mg daily, Brilinta 90 mg b.i.d. metoprolol Weakness of both lower extremities 05/28/2023 Assessment [...] pump in place 10/17/2022 Assessment & Plan (04/19/2025 8:44 AM CDT): This is a chronic condition which is not at goal . Download reviewed. From 04/06/2025 to 04/19/2025 Type of insulin pump- Medtronics 780 G with Guardian 4 sensor Pump settings : Basal -0.9 IC -- 9.5 ISF - 36 Active insulin time - 2 hrs. TARGET GLUCOSE -100-110 Avg BG 164 + or - 57 Avg Total daily insulin 61 units Avg daily bolus - 40 units (65%) Avg daily basal - 21 units (35%) Interpretation: In target 63% of the time. 2% hypoglycemia. 35% hyperglycemia. In manual mode 10% of the time, in smartguard 86%. Encouraged continued smartguard. Assessment & Plan (01/18/2025 12:01 PM CHECKER IN): This is a chronic condition which is [...] activity. Assessment & Plan (10/29/2023 12:12 PM CHECKER IN): This is a chronic condition which is [...] time. Assessment & Plan (01/16/2023 2:06 PM CHECKER IN): This is a chronic condition which is [...] time. Assessment & Plan (10/17/2022 12:55 PM CHECKER IN): This is a chronic condition which is [...] a associated with type 1 diabetes mellitus ([facility]) 04/05/2021 Assessment & Plan (04/28/2025 12:28 PM CDT): Stable, well controlled, LDL at goal Continue atorvastatin 40 mg daily Assessment & Plan (09/16/2024 9:56 AM CDT): [...] prescribed. Assessment & Plan (10/29/2023 12:10 PM CHECKER IN): This is a chronic condition which is [...] prescribed. Assessment & Plan (01/16/2023 2:04 PM CHECKER IN): This is a chronic condition which is not at goal. Goal is less than 70. Personally reviewed lipid panel. LDL -114. Continue simvastatin Encouraged to eat healthy, include fresh fruits and vegetables daily and avoid eating fried foods more than once per week. Encouraged to take medications as prescribed. Assessment & Plan (10/24/2022 9:10 AM CHECKER IN): Controlled, last LDL was 114; however patient [...] of 23, C-peptide 2.1 Assessment & Plan (04/28/2025 12:28 PM CDT): Stable, well controlled, A1c near goal, continue insulin per Endocrinology Assessment & Plan (09/16/2024 9:56 AM CDT): [...] simvastatin Assessment & Plan (10/29/2023 12:10 PM CHECKER IN): This is a chronic condition which is [...] Improving control with improved management of sensory torque tester Will continue to support dietary changes and [...] simvastatin Assessment & Plan (01/16/2023 2:04 PM CHECKER IN): This is a chronic condition which is [...] No history of macrovascular disease - [place], [place]. Assessment & Plan (10/24/2022 9:10 AM CHECKER IN): Stable, improving; last A1c was 11.6, however patient now has insulin pump has been using for the past month with improved control blood sugars Patient pressing on low-carbohydrate diet and low refined carbohydrate diet Will continue to monitor Assessment & Plan (10/17/2022 12:51 PM CHECKER IN): This is a chronic condition which is [...] No history of macrovascular disease - [place], [place]. Assessment & Plan (09/05/2022 12:33 PM CDT): [...] No history of macrovascular disease - [place]. Assessment & Plan (02/21/2022 5:41 PM CDT): [...] No history of macrovascular disease - [place]. DexCom 6 continuous glucose monitor applied from [...] pump and sensor. He would like the [employer] 770 G insulin pump system. Referral sent to Mr. Youth/Arina Broussard Encouraged annual eye exam. last dilated [...] No history of macrovascular disease - [place], [place]. Therapeutic CGM is needed for this person [...] from continuous glucose monitoring. Moderate tobacco use disorder, in early remissio n 09/28/2020 Overview (09/28/2020): One pack per day, since age 20 Assessment & Plan (04/28/2025 12:28 PM CDT): Stable, well controlled; patient quit smoking when admitted for heart attack; remain smoke free; continue smoking cessation Assessment & Plan (04/28/2024 12:46 PM CDT): [...] cessation Assessment & Plan (10/24/2022 9:11 AM CHECKER IN): Stable, improving; patient reports he is now [...] change Assessment & Plan (12/19/2020 1:47 PM CHECKER IN): Improving, patient has decreased tobacco use, patient is ready to quit Assessment & Plan (11/03/2020 1:42 PM CHECKER IN): Not ready to quit Assessment & Plan (09/28/2020 12:56 PM CHECKER IN): Patient reports he has quit a few [...] 03/01/2021 Assessment & Plan (12/19/2020 1:47 PM CHECKER IN): Improving, not well controlled, a1c is 9.0 today -will increase dose of Metformin to 1000 units daily -patienthas been working hard on dietary changes, decreased carbohydrate intake, targeting 50 mg per meal. Assessment & Plan (11/03/2020 2:44 PM CHECKER IN): Improved control based upon patient's home glucose [...] retinopathy Assessment & Plan (09/28/2020 12:54 PM CHECKER IN): Patient's symptoms consistent with newly diagnosed diabetes [...] eating. Assessment & Plan (09/28/2020 12:56 PM CHECKER IN): Recent weight loss attributed to newly diagnosed diabetes, however patient overall has good healthy weight Immunizations Immunization Administration Dates Next Due Influenza, Unspecified 04/26/2023(Deferr ed: Patient Refused),07/19/2022(Deferred: Patient Refused),08/18/2021(Deferred: Patient Refused),12/19/2020(Deferred: Patient Refused),11/18/2020(Deferred: Patient Refused),11/03/2020(Deferred: Patient Refused),09/28/2020(Deferred: Patient Refused),11/18/2019(Deferred: Patient Refused),11/18/2019(Deferred: Patient Refused),11/18/2019(Deferred: Patient Refused),11/18/2019(Deferred: Patient Refused) [employer] (J[employer]J) SARS-CoV-2 Vaccination 01/24/2021 Social History Tobacco Use Types Packs/Day Years Used Date Smoking Tobacco: Former Cigarettes 0.8 25.2 0 11/1999 - 01/2025 Smokeless Tobacco: Never Tobacco Cessation:Counseling Given: Not Answered Comments:1 ppd Alcohol Use [...] points, staff should administer the PHQ-9) 0 04/28/2025 Sex and Gender Information Value Date Recorded Sex Assigned at Not on file Legal Sex Male 1:40 AM CHECKER IN Gender Identity Not on file Sexual Orientation Not on file Last Filed Vital Signs Vital Sign Reading Time Taken Comments Blood Pressure 108/62 05/19/2025 9:13 AM CDT Pulse 80 05/19/2025 9:13 AM CDT Temperature 36.7 C (98 F) 04/28/2025 7:54 AM CDT Respiratory Rate 18 04/28/2025 7:54 AM CDT Oxygen Saturation 96% 05/19/2025 9:13 AM CDT Inhaled Oxygen Concentration - - Weight 67 kg (147 lb 9.6 oz) 05/19/2025 9:13 AM CDT Height 170.2 cm (5' 7) 05/19/2025 9:13 AM CDT Body Mass Index 23.12 05/19/2025 9:13 AM CDT Plan of Treatment Not on file Procedures Procedure Name Priority Date/Time Associated Diagnosis Comments STOOL DNA COLOGUARD Routine 05/19/2025 7:40 AM CDT Colon cancer screening EGFR Routine 04/19/2025 9:16 AM CDT Mixed diabetic hyperlipidemia associated with type 1 diabetes mellitus (CMS/HCC) (HCC) COMPREHENSIVE METABOLIC PANEL Routine 04/19/2025 9:16 AM CDT Mixed diabetic hyperlipidemia associated with type 1 diabetes mellitus (CMS/HCC) (HCC) LIPID PANEL Routine 04/19/2025 9:16 AM CDT Mixed diabetic hyperlipidemia associated with type 1 diabetes mellitus (CMS/HCC) (HCC) ALBUMIN CREATININE RATIO, URINE Routine 04/19/2025 9:16 AM CDT Mixed diabetic hyperlipidemia associated with type 1 diabetes mellitus (CMS/HCC) (HCC) POCT HEMOGLOBIN A1C Routine 04/19/2025 8 :54 AM CDT Mixed diabetic hyperlipidemia associated with type 1 diabetes mellitus (CMS/HCC) (HCC) POCT GLUCOSE Routine 04/19/2025 8:44 AM CDT Mixed diabetic hyperlipidemia associated with type 1 diabetes mellitus (CMS/HCC) (HCC) HEPATITIS C ANTIBODY Routine 04/30/2024 8:13 AM CDT Encounter for hepatitis C screening test for low risk patient THYROID FUNCTION CASCADE Routine 04/30/2024 8:13 AM CDT [place]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 NEGATIVE TEST RESULT. A negative Cologuard result [...] (Miri Jansen al, N Engl J Med 2014;370(14):1286- 1297) The normal value (reference range) for this assay is negative. COLOGUARD RE-SCREENING RECOMMENDATION: Periodic colorectal cancer screening is an important part of preventive healthcare for asymptomatic individuals at average risk for colorectal cancer. Following a negative Cologuard result, the English Cancer Society and U.S. Multi-Society Task Force screening guidelines recommend a Cologuard re-screening interval of 3 years. References: English Cancer Society Guideline for Colorectal Cancer Screening: https://www.cancer.org/cancer/spzpe-dmeyxz-rgqjbs/bjcnkkzsz-tkqjqrhtf-hrfacaz/ac s-rec ommendations.html.; Garrett DK, Lashaun THOMAS, Keisha GrayK, Colorectal Cancer Screening: Recommendations for Physicians and Patients from the U.S. Multi-Society Task Force on Colorectal Cancer Screening , Am J Gastroenterology 2017; 112:6566-1911. TEST DESCRIPTION: Composite algorithmic analysis of stool [...] (Miri Jansen al, N Engl J Med 2014;370(14):6588-0618.) Cologuard may produce a false negative or false positive result (no colorectal cancer or precancerous polyp present at colonoscopy follow up). A negative Cologuard test result does not guarantee the absence of CRC or advanced adenoma (pre-cancer). The current Cologuard screening interval is every 3 years. (English Cancer Society and U.S. Multi-Society Task Force). Cologuard performance data in a 10,000 patient pivotal study using colonoscopy as the reference method can be accessed at the following location: www.[employer]/results. Additional description of the Cologuard test process, warnings and precautions can be found at www.[employer]rd.com. Stool 05/19/2025 7:40 AM CDT 05/20/2025 12:16 PM CDT us Jose Elias Babb MD LAB BODY FLUIDS AND STOOL S ORDERABLES Final Result Performing Organization Address [facility] de Phone Number [employer] (CLIA #:[id number]) [address] [place] [address] * eGFR (04/19/2025 9:16 AM CDT) eGFR >90 >=60 mL/min/1. 73 [...] was last reviewed 2021. Testing performed by: [facility], [address] [place] [address], [place]., [address] Blood 04/19/2025 9:16 AM CDT 04/19/2025 5:17 PM CDT us Elena Boland NP LAB BLOOD ORDERABLES Final Resu lt Performing Organization Address City/[facility]/ZIP Co de Phone Number ADELIA [address] Department [place] [address] * Albumin Creatinine Ratio, Urine (04/19/2025 9:16 AM CDT) Albumin Ur <12.0 mg/L Comment: Interpretive Data No reference range established. Current interpretive data was last revised 2019. Testing performed by: [facility], [address] [place] [address]., [address] Creatinine Ur 118.3 mg/dL ADELIA Comment: Interpretive Data No reference range established. Current interpretive data was last revised 2019. Testing performed by: [facility], [address] [place] [address]., [address] Albumin Creatinine Ratio, Ur <10 1 - 29 mg/g ADELIA Comment:Testing performed by : [address] [address] Urine 04/19/2025 9:16 AM CDT 04/19/2025 5:13 PM CDT us Elena Boland NP LAB URINE ORDERABLES Final Resu lt Performing Organization Address [facility] de Phone Number ADELIA [address] [facility] Department [place] [address] * (ABNORMAL) Lipid panel (04/19/2025 9:16 AM CDT) Cholesterol 90 30 - 199 mg/dL Comment: Interpretive Data [...] last revised on 2018. Testing performed by: [address] [address] Triglycerides 47 <=149 mg/dL ADELIA Comment: Interpretive Data Ages < or = [...] last revised on 2018. Testing performed by: [address] [address] HDL 37(L) >=40 mg/dL ADELIA Comment: Interpretive Data Ages < or = [...] last revised on 2018. Testing performed by: [facility], [address] [place] [address]., [address] LDL, calculated 41 <=129 mg/dL ADELIA Comment: Interpretive Data Ages < or = 19 years Acceptable: <110 mg/dL Borderline high: 110-129 mg/dL High: >or= 130 mg/dL Ages > or = 20 years Optimal: <100 mg/dL Near optimal: 100-129 mg/dL Borderline high: 130-159 mg/dL High: >160 mg/dL Calculated using the Ruiz LDL-C estimating equation. This equation was implemented on 2024. Prior to this date LDL-C was estimated using the Friedewald equation. Literature References: 1. Expert Panel on Integrated Guidelines for Cardiovascular Health and Risk Reduction in Children and Adolescents. Pediatrics 2011;128:S213 2. NCEP Expert Panel. Circulation 2004;110:227 3. Joseph Davis et al. LATRICIA Cardiol. 2020 March 18;5(5):540-548. doi: 10.1001/jamacardio.2020.0013 Current Interpretive Data was last revised on 2024. Testing performed by: [address] [address] Non-HDL Cholesterol 53 mg/dL ADELIA Comment: Interpretive Data Ages < or = [...] last revised on 2018. Testing performed by: [address] [address] Chol/HDL ratio 2 ADELIA Comment:Testing performed by : [address] [address] Blood 04/19/2025 9:16 AM CDT 04/19/2025 5:12 PM CDT Narrative ADELIA - 04/19/2025 5:42 PM CDT These lab test should be done fasting. This means do not eat or drink for at least 12 hours prior to getting your blood drawn. us Elena Boland NP LAB BLOOD ORDERABLES Final Resu lt [address] Department [place] [address] * Comprehensive metabolic panel (04/19/2025 9:16 AM CDT) Sodium 138 135 - 145 mmol/L Comment:Testing performed by : [address] [address] Potassium, pl 4.5 3.3 - 4.9 mmol/L [facility] Comment:Testing performed by : [facility], [address] [place] [address]., [address] Chloride 103 97 - 110 mmol/L [facility] Comment:Testing performed by : [address] [address] CO2 24 22 - 32 mmol/L [facility] Comment:Testing performed by : [address] [address] Anion gap 11 2 - 15 mmol/L [facility] Comment:Testing performed by : [facility], [address] [place] [address], [address] BUN 14 6 - 25 mg/dL [facility] Comment:Testing performed by : [address], [address] Creatinine 0.87 0.80 - 1.30 mg/dL [facility] Comment:Testing performed by : [address], [address] Glucose 155 70 - 199 mg/dL [facility] Comment: Interpretive Data Fasting glucose >/= 126 mg/dl is diagnostic for diabetes. Fasting is defined as no caloric intake for at least 8 hours. Fasting glucose between 100 mg/dl to 125 mg/dl is diagnostic of prediabetes. In a patient with classic symptoms of hyperglycemia or hyperglycemic crisis, a random glucose >/= 200 mg/dl is diagnostic for diabetes. In the absence of unequivocal hyperglycemia, results should be confirmed by repeat testing. The classification and Diagnosis of Diabetes Diabetes Care 202; 46: S19-S40. Current interpretive data was last revised 2022. Testing performed by: [address] [address] Calcium 9.4 8.5 - 10.3 mg/dL [facility] Comment:Testing performed by : [address] [address] Bilirubin, total 1.0 0.1 - 1.2 mg/dL [facility] Comment:Testing performed by : [address] [address] Protein, pl 6.9 6.5 - 8.5 g/dL [facility] Comment:Testing performed by : [address], [address] Albumin 4.0 3.5 - 5.0 g/dL [facility] Comment:Testing performed by : [facility], [address] [place] [address]., [address] Alk phos 68 40 - 130 Units/L [facility] Comment:Testing performed by : [facility], [address] [place] [address], [address] ALT 34 7 - 55 Units/L [facility] Comment:Testing performed by : [facility], [address] [place] [address], [address] AST 32 10 - 50 Units/L [facility] Comment:Testing performed by : [facility], [address] [place] [address]., [address] Blood 04/19/2025 9:16 AM CDT 04/19/2025 5:12 PM CDT Elena Boland NP LAB BLOOD ORDERABLES Final Resu lt [address] [place] [address] * (ABNORMAL) POCT hemoglobin A1c (04/19/2025 8:54 AM CDT) Hemoglobin A1C, POC 7.2(A) 4.0 - 5.6 % Blood 04/19/2025 8:54 AM CDT Elena Boland NP POINT OF CARE TEST ORDERABLES F inal Result * POCT glucose (04/19/2025 8:44 AM CDT) Glucose Blood, POC 165 Normal Fasting 70 - 100, Random <200 mg/dL Blood 04/19/2025 8:44 AM CDT us Elena Boland NP POINT OF CARE TEST ORDERABLES F inal Result * Thyroid Function [place] (04/30/2024 8:13 AM CDT) TSH 1.23 0.30 - 4.20 mcIUnit/mL Comment:Testing performed by : [facility], [address] [place] [address]., [id number] Blood 04/30/2024 8:13 AM CDT 04/30/2024 12:29 PM CDT Jose Elias Babb MD LAB BLOOD ORDERABLES Pricilla l Result Performing Organization Address [facility] Co de Phone Number ADELIA [facility] ([place]) [address] [facility] [place] [address] * PSA screen (04/30/2024 8:13 AM CDT) [...] data last revised 22. Testing performed by: [facility], [address] [place] [address]., [address] Blood 04/30/2024 8:13 AM CDT 04/30/2024 12:29 PM CDT Jose Elias Babb MD LAB BLOOD ORDERABLES Pricilla l Result Performing Organization Address [facility] Co de Phone Number [facility]ER [facility] (EIZMX) [address] [facility] [place] [address] * Hepatitis C antibody Blood (04/30/2024 8:13 [...] last revised on 2020. Testing performed by: [facility], [address] [place] [address]., [address] Blood 04/30/2024 8:13 AM CDT 04/30/2024 12:29 PM CDT us Jose Elias Babb MD LAB MICROBIOLOGY - [facility] L ORDERABLES Final Result [facility] [place] [address] [facility] Department [place] [address] * Diabetic Eye Exam (10/14/2023) us Historical Provider HEALTH MAINTENANCE Final Result from Last 3 Months or Most Recently Relevant to Health Maintenance Insurance [facility] [employer] [facility] [place] [address] Care Teams Copy Center Operator Relationship Specialty Start Date End Date Jose Elias Babb MD [address] [place] [address] PCP - General Family Medicine 09/28/20
--- OUTSIDE RECORDS SUMMARY | 2025-06-07 08:41 | XMS_ITS | Encounter Summary ---
Author Organization [facility] Healthcare Address [address] [place] [address] Care Team Providers Care Dielectric Testing Machine Operator Name Role Phone Jose Elias Babb MD Primary Care Provider [phone] Encounter Details Date Type Department Care Team (Late st Contact Info) Description 05/25/2025 Results Follow-Up [facility] [address] [place] [address] Jose Elias Babb MD [address] [place] [address] Stool DNA - Cologuard Social History Tobacco Use Types Packs/Day Years Used Date Smoking Tobacco: Former Cigarettes 0.8 25.2 0 11/1999 - 01/2025 Smokeless Tobacco: Never Comments:1 ppd Alcohol Use Standard Drinks/Week Comments [...] on file 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 documented in this encounter Plan of Treatment Not on file documented as of this encounter Visit Diagnoses Not on filedocumented in this encounter Care Teams Dielectric Testing Machine Operator Relationship Specialty Start Date End Date Jose Elias Babb MD [address] [place] [address] PCP - General Family Medicine 09/28/20 documented as of this encounter
--- OUTSIDE RECORDS SUMMARY | 2025-06-07 08:41 | XMS_ITS | Encounter Summary ---
Author Organization [facility] Healthcare Address [address] [place] [address] Care Team Providers Care Scallop Dredger Name Role Phone Jose Elias Babb MD Primary Care Provider [phone] Encounter Details Date Type Department Care Team (Latest Contact Info) Description 04/20/2025 Results Follow-Up [facility] Medical Group Diabetes Endocrine Care at [address] [place] [id number] Elena Boland, CORPORATE LOGISTICS MANAGER [address] [facility] [address] [place] [address] Albumin Creatinine Ratio, Urine, Lipid panel, Comprehensive metabolic panel, eGFR Social History Tobacco Use Types Packs/Day Years Used Date Smoking Tobacco: Former Cigarettes Smokeless Tobacco: Never Comments:1 ppd Alcohol Use [...] on file 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
--- OUTSIDE RECORDS SUMMARY | 2025-06-07 08:41 | XMS_ITS | Clinical Summary ---
Author Organization [address] lt Address [address] [facility] [place] [address] Care Team Providers Care Senior Pricing Analyst Name Role Phone Jose Elias Babb MD Primary Care Provider [phone] Allergies No known active allergies Medications blood-glucose meter kit 1 each daily One-Touch Device 1 each 0 Active insulin admin supplies (InPen, for NovoLOG or Fiasp,) insulin pen Inject 1 Device under the skin 3 (three) times a day before meals Use [employer] inpen with Novolog to dose insulin e10.65 [...] mg SL tabletIndication s:Coronary artery disease involving [place] coronary artery of [place] heart without angina pectoris Place 1 tablet [...] Diagnosed Date Coronary artery disease invo lving [place] coronary artery of [place] heart without angina pectoris 04/28/2025 Assessment & [...] autoimmune disorder such as Graves disease, Екатерина's, Bolivar's disease or myasthenic syndrome Will continue to [...] smartguard. Assessment & Plan (01/18/2025 12:01 PM MARINE FARMER): This is a chronic condition which is [...] activity. Assessment & Plan (10/29/2023 12:12 PM MARINE FARMER): This is a chronic condition which is [...] time. Assessment & Plan (01/16/2023 2:06 PM MARINE FARMER): This is a chronic condition which is [...] time. Assessment & Plan (10/17/2022 12:55 PM MARINE FARMER): This is a chronic condition which is [...] a associated with type 1 diabetes mellitus ([facility]) 04/05/2021 Assessment & Plan (04/28/2025 12:28 PM [...] prescribed. Assessment & Plan (10/29/2023 12:10 PM MARINE FARMER): This is a chronic condition which is [...] prescribed. Assessment & Plan (01/16/2023 2:04 PM MARINE FARMER): This is a chronic condition which is not at goal. Goal is less than 70. Personally reviewed lipid panel. LDL -114. Continue simvastatin Encouraged to eat healthy, include fresh fruits and vegetables daily and avoid eating fried foods more than once per week. Encouraged to take medications as prescribed. 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 Assessment & Plan (10/24/2022 9:10 AM MARINE FARMER): Stable, improving; last A1c was 11.6, however patient now has insulin pump has been using for the past month with improved control blood sugars Patient pressing on low-carbohydrate diet and low refined carbohydrate diet Will continue to monitor Assessment & Plan (10/17/2022 12:51 PM MARINE FARMER): This is a chronic condition which is [...] No history of macrovascular disease - CVA, [place]. Assessment & Plan (09/05/2022 12:33 PM CDT): [...] No history of macrovascular disease - CVA, [place]. Assessment & Plan (02/21/2022 5:41 PM CDT): [...] No history of macrovascular disease - CVA, [place]. DexCom 6 continuous glucose monitor applied from [...] pump and sensor. He would like the [employer] 770 G insulin pump system. Referral sent to [facility]/Arina Broussard Encouraged annual eye exam. last dilated [...] No history of macrovascular disease - CVA, [place]. Therapeutic CGM is needed for this person [...] cessation Assessment & Plan (10/24/2022 9:11 AM MARINE FARMER): Stable, improving; patient reports he is now [...] change Assessment & Plan (12/19/2020 1:47 PM MARINE FARMER): Improving, patient has decreased tobacco use, patient is ready to quit Assessment & Plan (11/03/2020 1:42 PM MARINE FARMER): Not ready to quit Assessment & Plan (09/28/2020 12:56 PM MARINE FARMER): Patient reports he has quit a few [...] 03/01/2021 Assessment & Plan (12/19/2020 1:47 PM MARINE FARMER): Improving, not well controlled, a1c is 9.0 today -will increase dose of Metformin to 1000 units daily -patienthas been working hard on dietary changes, decreased carbohydrate intake, targeting 50 mg per meal. Assessment & Plan (11/03/2020 2:44 PM MARINE FARMER): Improved control based upon patient's home glucose [...] retinopathy Assessment & Plan (09/28/2020 12:54 PM MARINE FARMER): Patient's symptoms consistent with newly diagnosed diabetes [...] eating. Assessment & Plan (09/28/2020 12:56 PM MARINE FARMER): Recent weight loss attributed to newly diagnosed diabetes, however patient overall has good healthy weight Encounters Date Type Department Care Team Description 05/25/2025 Results Follow-Up [facility] of [address] [address] Jose Elias Babb MD Stool DNA - Cologuard 05/19/2025 9:15 AM CDT Office Visit [facility] Medical Group Cardiology [address] [facility] [address] [place] [phone] Edison Wood MD Coronary artery disease involving [place] coronary artery of [place] heart without angina pectoris (Primary Dx); History of ST elevation myocardial infarction (STEMI); Status post angioplasty with stent; Type 1 diabetes mellitus without complication (HCC); Sleep disorder; History of tobacco abuse 04/28/2025 8:00 AM CDT Office Visit [facility] of [address] [address] Jose Elias Babb MD Coronary artery disease involving [place] coronary artery of [place] heart without angina pectoris (Primary Dx); Colon cancer screening; Moderate tobacco use disorder, in early remission; [place] (latent autoimmune diabetes in adults), managed as type 1 (HCC); Mixed diabetic hyperlipidemia associated with type 1 diabetes mellitus (CMS/HCC) (HCC) 04/20/2025 Results Follow-Up [facility] Medical Group Diabetes Endocrine Care at [address] [place] [address] Elena Boland, PILAR Albumin Creatinine Ratio, Urine, Lipid panel, Comprehensive metabolic panel, eGFR 04/19/2025 9:10 AM CDT Lab [facility] Outpatient Lab - Outpatient Center at [address] [address] Mixed diabetic hyperlipidemia associated with type 1 diabetes mellitus (CMS/HCC) (HCC) 04/19/2025 8:30 AM CDT Office Visit [facility] Medical Group Diabetes Endocrine Care at [address] [place] [phone] Elena Boland, PILAR [place] (latent autoimmune diabetes in adults), managed as type 1 (HCC) (Primary Dx); Mixed diabetic hyperlipidemia associated with type 1 diabetes mellitus (CMS/HCC) (HCC); Medtronic 780G Insulin pump in place 03/24/2025 Telephone [facility] Medical [facility] Cardiology [address] [place] [address] Edison Wood MD 03/15/2025 Orders Only [facility] Diabetes Endocrine Care at [address] [place] [address] Elena Boland NP from Last 3 Months Immunizations Immunization Administration Dates Next Due Influenza, Unspecified 04/26/2023(Deferr ed: Patient Refused),07/19/2022(Deferred: Patient Refused),08/18/2021(Deferred: Patient Refused),12/19/2020(Deferred: Patient Refused),11/18/2020(Deferred: Patient Refused),11/03/2020(Deferred: Patient Refused),09/28/2020(Deferred: Patient Refused),11/18/2019(Deferred: Patient Refused),11/18/2019(Deferred: Patient Refused),11/18/2019(Deferred: Patient Refused),11/18/2019(Deferred: Patient Refused) NoiseFree (J&J) SARS-CoV-2 Vaccination 01/24/2021 Surgical History Surgery Date Site/Laterality Comments ANTERIOR CRUCIATE LIGAMENT REPAIR 11/18/2006 - 7 KNEE ARTHROSCOPY W/ LATERAL RELEASE 2007 CARDIAC CATHETERIZATION 01/16/2025 - 02/15/2025 Dr. 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 Gender Identity Not on file Sexual Orientation [...] 05/19/2025 9:13 AM CDT Plan of Treatment Health Maintenance Due Date Last Done Comments DTaP/Tdap/Td Vaccine (1 - Tdap) 1983 Pneumococcal vaccine <65 (1 of 2 - PCV) 1991 Zoster Vaccine (1 of 2) 2022 Covid-19 Vaccine (2 - 2023-2 5 season) 2024 01/24/2021 TSH Level 04/30/2025 04/30/2024, 04/18, 09/05/2022, Additional history exists Influenza Vaccine (#1) 2025 Foot Exam 09/16/2025 09/16/2024, 01/16, 10/29/2023, Additional history exists Dilated Eye Exam 10/14/2025 10/14/2023, , 03/02/2021 Hemoglobin A1C 10/19/2025 04/19/2025, 03/0 01/2025, 09/16/2024, Additional history exists Albumin Creatinine Ratio, Urine 04/19/2026 04/19/2025, 04/30/2024, 04/30/2023, Additional history exists Lipid Panel 04/19/2026 04/19/2025, 04/18, 04/30/2023, Additional history exists eGFR 04/19/2026 04/19/2025, 04/18, 04/30/2023, Additional history exists Depression Screening 04/28/2026 04/28/2025, 04/28/2024, 04/26/2023, Additional history exists Regular Well Visit/Exam 18-64 04/28/2026 04/28/2025, 04/28/2024 Prostate Cancer Screening-PSA 04/30/2026 04/30/2024, 04/30/2023 Colon Cancer Screening-DNA Stool 05/19/2028 05/19/20 25, 02/15/2022 Hepatitis B Screening Completed 04/30/2024 Hepatitis C [...] CDT) Stool DNA - Cologuard Negative Negative [employer] (CLIA #:[id number]) Comment: The Cologuard (TM) test was performed [...] cancer. Following a negative Cologuard result, the Greek Cancer Society and U.S. Multi-Society Task Force screening guidelines recommend a Cologuard re-screening interval of 3 years. References: Greek Cancer Society Guideline for Colorectal Cancer Screening: https://www.cancer.org/cancer/cbvkr-tkpsks-symvxk/dusoncate-xcqzqczlp-xntswja/ac s-rec ommendations.html.; Garrett DK, Lashaun THOMAS, Keisha GrayK, Colorectal Cancer Screening: Recommendations for Physicians and Patients from the U.S. Multi-Society Task Force on Colorectal Cancer Screening , Am J Gastroenterology 2017; 112:9476-9940. TEST DESCRIPTION: Composite algorithmic analysis of stool [...] colonoscopy. (Miri Pacheco, N Engl J Med 2014;370(14):0808-7506.) Cologuard may produce a false negative or false positive result (no colorectal cancer or precancerous polyp present at colonoscopy follow up). A negative Cologuard test result does not guarantee the absence of CRC or advanced adenoma (pre-cancer). The current Cologuard screening interval is every 3 years. (Greek Cancer Society and U.S. Multi-Society Task Force). Cologuard performance data in a 10,000 patient pivotal study using colonoscopy as the reference method can be accessed at the following location: www.ContestMachine/results. Additional description of the Cologuard test process, warnings and precautions can be found at www.cologDuckDuckGord.com. Stool 05/19/2025 7:40 AM CDT 05/20/2025 12:16 PM CDT us Jose Elias Babb MD LAB BODY FLUIDS AND STOOL S ORDERABLES Final Result [employer] (CLIA #:[id number]) [address] [place] [address] * eGFR (04/19/2025 9:16 AM CDT) eGFR [...] was last reviewed 2021. Testing performed by: [facility], [address] [place] [address]., [address] Blood 04/19/2025 9:16 AM CDT 04/19/2025 5:17 PM CDT Elena Boland BROKE BEATER LAB BLOOD ORDERABLES Final Resu lt Performing Organization Address [facility] de Phone Number [facility]NOTE 3] [address] [facility] Department [place] [address] * Albumin Creatinine Ratio, Urine (04/19/2025 9:16 AM CDT) Albumin Ur <12.0 mg/L Comment: Interpretive Data No reference range established. Current interpretive data was last revised 2019. Testing performed by: [address] [address] Creatinine Ur 118.3 mg/dL [facility]NOTE 3] Comment: Interpretive Data No reference range established. Current interpretive data was last revised 2019. Testing performed by: [address] [address] Albumin Creatinine Ratio, Ur <10 1 - 29 mg/g [facility]NOTE 3] Comment:Testing performed by : [address] [address] Urine 04/19/2025 9:16 AM CDT 04/19/2025 5:13 PM CDT Elena Boland BROKE BEATER LAB URINE ORDERABLES Final Resu lt Performing Organization Address [facility] de Phone Number ADELIA [address] [facility] Department [place] [address] * (ABNORMAL) Lipid panel (04/19/2025 9:16 AM [...] last revised on 2018. Testing performed by: [facility], [address] [place] [address]., [address] Triglycerides 47 <=149 mg/dL ADELIA Comment: Interpretive [...] last revised on 2018. Testing performed by: [facility], [address] [place] [address]., [address] HDL 37(L) >=40 mg/dL ADELIA Comment: Interpretive [...] last revised on 2018. Testing performed by: [address] [address] LDL, calculated 41 <=129 mg/dL ADELIA Comment: Interpretive Data Ages < or = 19 years Acceptable: <110 mg/dL Borderline high: 110-129 mg/dL High: >or= 130 mg/dL Ages > or = 20 years Optimal: <100 mg/dL Near optimal: 100-129 mg/dL Borderline high: 130-159 mg/dL High: >160 mg/dL Calculated using the Joseph LDL-C estimating equation. This equation was implemented on 2024. Prior to this date LDL-C was estimated using the Friedewald equation. Literature References: 1. Expert Panel on Integrated Guidelines for Cardiovascular Health and Risk Reduction in Children and Adolescents. Pediatrics 2011;128:S213 2. NCEP Expert Panel. Circulation 2004;110:227 3. Joseph M et al. LATRICIA Cardiol. 2019March 18;5(5):540-548. doi: 10.1001/jamacardio.2020.0013 Current Interpretive Data was last revised on 2024. Testing performed by: [address] [address] Non-HDL Cholesterol 53 mg/dL ADELIA GALDAMEZ Comment: Interpretive Data Ages < or = [...] last revised on 2018. Testing performed by: [address] [address] Chol/HDL ratio 2 ADELIA Comment:Testing performed by : [address] [address] Blood 04/19/2025 9:16 AM CDT 04/19/2025 5:12 PM CDT Narrative ADELIA - 04/19/2025 5:42 PM CDT These lab test should be done fasting. This means do not eat or drink for at least 12 hours prior to getting your blood drawn. us Elena Boland NP LAB BLOOD ORDERABLES Final Resu lt ADELIA [address] Department [place] [address] * Comprehensive metabolic panel (04/19/2025 9:16 AM CDT) Sodium 138 135 - 145 mmol/L Comment:Testing performed by : [address] [address] Potassium, pl 4.5 3.3 - 4.9 mmol/L CERNER CH Comment:Testing performed by : [address], [address] Chloride 103 97 - 110 mmol/L CERNER CH Comment:Testing performed by : [facility], [address] [place] [address]., [address] CO2 24 22 - 32 mmol/L CERNER CH Comment:Testing performed by : [address], [address] Anion gap 11 2 - 15 mmol/L CERNER CH Comment:Testing performed by : [address], [address] BUN 14 6 - 25 mg/dL CERNER CH Comment:Testing performed by : [address] [address] Creatinine 0.87 0.80 - 1.30 mg/dL CERNER CH Comment:Testing performed by : [address] [address] Glucose 155 70 - 199 mg/dL CERNER [...] classification and Diagnosis of Diabetes Diabetes Care 2021; 46: S19-S40. Current interpretive data was last revised 2022. Testing performed by: [address] [address] Calcium 9.4 8.5 - 10.3 mg/dL CERNER CH Comment:Testing performed by : [address], [address] Bilirubin, total 1.0 0.1 - 1.2 mg/dL CERNER Comment:Testing performed by : [facility], [address] [place] [address]., [address] Protein, pl 6.9 6.5 - 8.5 g/dL CERNER CH Comment:Testing performed by : [facility], [address] [place] [address], [address] Albumin 4.0 3.5 - 5.0 g/dL CERNER Comment:Testing performed by : [facility], [address] [place] [address]., [address] Alk phos 68 40 - 130 Units/L CERNER CH Comment:Testing performed by : [facility], [address] [place] [address], [address] ALT 34 7 - 55 Units/L CERNER Comment:Testing performed by : [address] [address] AST 32 10 - 50 Units/L CERNER Comment:Testing performed by : [address], [address] Blood 04/19/2025 9:16 AM CDT 04/19/2025 5:12 PM CDT Elena Boland NP LAB BLOOD ORDERABLES Final Resu lt [address] Department [place] [address] * (ABNORMAL) POCT hemoglobin A1c (04/19/2025 8:54 AM CDT) Pathologist [facility] Hemoglobin A1C, POC 7.2(A) 4.0 - 5.6 % Blood 04/19/2025 8:54 AM CDT Elena Boland NP POINT OF CARE TEST ORDERABLES F inal Result * POCT glucose (04/19/2025 8:44 AM CDT) Glucose Blood, POC 165 Normal Fasting 70 - 100, Random <200 mg/dL Blood 04/19/2025 8:44 AM CDT Elena Boland NP POINT OF CARE TEST ORDERABLES F inal Result * Thyroid Function [place] (04/30/2024 8:13 AM CDT) TSH 1.23 0.30 - 4.20 mcIUnit/mL Comment:Testing performed by : [facility], [address] [place] [address], [address] Blood 04/30/2024 8:13 AM CDT 04/30/2024 12:29 PM CDT Jose Elias Babb MD LAB BLOOD ORDERABLES Pricilla l Result ADELIA [facility]) [address] [place] [address] [place] [address] * PSA screen (04/30/2024 8:13 AM CDT) [...] data last revised 22. Testing performed by: [facility], [address] [place] [address], [address] Blood 04/30/2024 8:13 AM CDT 04/30/2024 12:29 PM CDT Jose Elias Babb MD LAB BLOOD ORDERABLES Pricilla l Result Performing Organization Address City/[facility]/ZIP Co de Phone Number [facility] [place]) [address] [place] [address] [place] [address] * Hepatitis C antibody Blood (04/30/2024 8:13 [...] last revised on 2020. Testing performed by: [facility], [address] [place] [address]., [address] Blood 04/30/2024 8:13 AM CDT 04/30/2024 12:29 PM CDT Jose Elias Babb MD LAB MICROBIOLOGY - [facility] L ORDERABLES Final Result Performing Organization Address City/State/[facility] Co de Phone Number CERNER [facility] ([place]) [address] [facility] Department [place] [address] * Diabetic Eye Exam (10/14/2023) Historical Provider HEALTH MAINTENANCE Final Result from Last 3 Months or Most Recently Relevant to Health [place] [address] [facility] PLUS [facility]PPO Address: [facility] [address] [place] [address] [facility] CHOICE PLUS [facility]O Address: [place] [address] Care Teams Senior Pricing Analyst Relationship Specialty Start Date End Date [place] [address] PCP - General Family Medicine 09/28/20
--- NOTE | 2025-06-30 15:22 | P.SLEEP_ITS ---
Sleep Study - Home Unattended Date of Study: 06/07/25 Ordering Provider: Edison Wood MD Interpreting Provider: Maggie Huang DO Home Sleep Study Type: Watch PAT Height: 1.7 m Weight: 64.864 kg Body Mass Index: 22.4 Neck Circumference (inches): 15.25 [place]: 10 Reason for Sleep Study Daytime hypersomnia Sleep History The patient is a 54-year-old male who had a sleep study ordered by his flagman for evaluation of sleep apnea. The patient did not complete his sleep questionnaire forms. [facility] Family History Family History Mother Breast cancer metastatic lungs and brain Thyroid condition Hypertension Social History Social History Smoking packs per day: 1.5 Smoking cigarettes per day: 30.0 Years smoked: 30 Smoking pack-years: 45.00 Smoking status: Former smoker Tobacco type: cigarettes Second hand tobacco smoke exposure: No Smoking end date: 01/31/25 Additional smoking assessment comments: states he started smoking at age 18 off and on then regularly in his 20's. Alcohol intake: never Substance use: never Substance use type: does not use Do You Feel Safe in your Home?: Yes Lack of Transportation: No Lack of Food: Never True Current Housing: I Have Housing Concerned About Future Housing: No Difficulty Paying Gas/Electric Bills: No Difficulty Paying for Meds: No Currently Unemployed: No Education: Associate Degree Difficulty w/ Childcare or Family Care: No Spiritual care concerns: No Medications Home Medications ?Medication ?Instructions ?Recorded ?Confirmed ?Type blood sugar diagnostic (Accu-Chek 01/31/25 01/31/25 History Guide test strips) insulin aspart (niacinamide) 100 unit subcut .continuos Diabetes 01/31/25 01/31/25 History (U-100) 100 unit/mL subcutaneous solution (Fiasp U-100 Insulin) ticagrelor 90 mg tablet (Brilinta) 90 mg PO Q12HR 90 days #180 tabs 02/01/25 Rx aspirin 81 mg tablet,delayed 81 mg PO QAM 30 days #30 tabs 02/02/25 Rx release atorvastatin 40 mg tablet 80 mg (2 x 40 mg) PO DAILY 30 days 02/02/25 Rx #60 tabs metoprolol succinate 25 mg 12.5 mg (1/2 x 25 mg) PO QAM 30 02/02/25 Rx tablet,extended release 24 hr days #15 tabs (Toprol XL) Sleep Procedure The sleep study was completed using [employer] a technically adequate device with seven channels: peripheral arterial tone, actigraphy, body position, snore, respiratory movement, pulse oximetry, sleep staging, and heart rate. Prior to using the device, the patient received verbal and written instructions for its application and was provided with the help desk phone number for additional telephonic instruction with 24-hour availability of qualified personnel to answer questions. The study was scored using AASM and CMS guidelines. Sleep Architecture The total recording time is 6 hrs, 43 min. The total sleep time is 6 hrs, 4 min. Sleep latency is 17 minutes. REM latency is 27 minutes. The patient had 2 episodes of waking. Sleep architecture shows 25.4% deep sleep, 39.8% light sleep, and (as % Total Sleep Time) showed NREM (Light 39.8%; Deep 25.4%), and a 34.8% stage REM. The patient spent 59.5% of total sleep time in the supine position. Sleep efficiency was 90.32. Respiratory Analysis The overall AHI (pAHI 4%:) is 1.7. The overall AHI (pAHI 3%:) is 5.5. The central AHI is 0.3. The AHI was 3.8 in NREM and 8.6 in REM sleep. The AHI was 7.8 in Supine and 2.1 in Non-supine sleep. Percent of Sulaiman Wiley respirations is 0.0. Oximetry Data The oxygen desaturation index (RASTA 4%:) is 1.3. The mean saturation is 95%, and the lowest saturation is 92%. Time spent with saturation < 88% is 0.0 minutes. Snoring Profile Snoring average intensity is 44 dB. The patient snored above 45 decibels for 110.9 minutes, 30.4% of sleep time. Cardiac Profile The average pulse rate is 60 beats per minutes. The lowest pulse rate is 46 bpm. The highest pulse rate reported is 93 bpm. Atrial fibrillation was not detected. Premature beats occur <0.1 per minute. Assessment and Plan Assessment and Plan (1) KYLE (obstructive sleep apnea): Code(s): G47.33 - Obstructive sleep apnea (adult) (pediatric) Status: Acute Assessment and Plan: Per AASM guidelines (3% criteria), the patient had an overall AHI of 5.5 with desaturation down to 92%. This is consistent with mild sleep apnea. Due to the patient's diabetes, he qualifies for treatment. I recommend that the patient be prescribed AutoPAP 5-15 cm H2O, CPAP mask/filters/tubing and heated humidity. A mandibular advancement device is also an acceptable treatment option. This should be used with all episodes of sleep.? Compliance should be reviewed within 31-90 days of starting therapy for usage greater than 4 hours per night greater than 70% of the nights. The patient should be asked about symptoms such as?excessive daytime sleepiness, quality of sleep, decreased nocturia, increased?mental functioning such as memory, mood, and concentration. PER CMS guidelines (4% criteria), the patient had an overall AHI of 1.7 with desaturation down to 92%. This is not consistent with sleep-disordered breathing. If the patient's insurance company online recognizes the CMS guidelines (4% criteria), the patient will not qualify for treatment. I recommend that the patient have a split study with the use of a hypnotic to ensure we obtain enough sleep data. Data The data obtained during this sleep study is adequate for interpretation. Certification This sleep study has been reviewed by a board certified sleep medicine physician.
[2025-06-30 15:23] VITALS: BMI 22.4
== END 2025-06-10 11:30 | disposition home or self-care (01) ==
LOC: ANHCSM 08:38
PROVIDERS: PCP Hospitalist; Visit Provider Internal Medicine Cardiovascular Disease
DX: G47.9 Sleep disorder, unspecified (principal); G47.33 Obstructive sleep apnea (adult) (pediatric)
CPT/HCPCS: 95800